=== PATIENT | female | born 1950 | race Caucasian/White ===

== ENCOUNTER → 2017-11-22 | Outpatient (CLI) | payer OTHER ==
--- NOTE | 2017-11-22 17:32 | DIAGNOSTIC IMAGING REPORT ---
LUMBAR SPINE W/O CONTRAST CLINICAL HISTORY: 67 years-old Female presenting with LUMBAR RADICULOPATHY, back pain with left-sided radiculopathy. TECHNIQUE: Multisequence, multiplanar MR imaging of the lumbar spine was performed without the use of intravenous contrast. IV contrast: None. COMPARISON: None. FINDINGS: Localizer images: Unremarkable. Vertebral bodies maintain normal height, alignment and bone marrow signal intensity apart from a benign hemangioma in L2 and minimal degenerative related superior endplate edema anteriorly at L2. Intervertebral discs demonstrate desiccation at L4-5 and desiccation with height loss at L5-S1. Additional multilevel degenerative changes further detailed below: L1-2: No significant neural foraminal or spinal canal narrowing. L2-3: No significant neural foraminal or spinal canal narrowing. L3-4: Mild facet arthropathy. No significant neural foraminal or spinal canal narrowing. L4-5: Minimal disc bulge and mild facet arthropathy result in mild right and moderate left neural foraminal narrowing. No significant spinal canal narrowing. L5-S1: Disc bulge and facet arthropathy result in mild right and moderate left neural foraminal narrowing. No significant spinal canal narrowing. The spinal cord in this in good position at the superior endplate of L1. Cauda equina normal in morphology. Paraspinal musculature within normal limits. Nonspecific subcutaneous edema in the lumbar region. Remaining visualized soft tissues demonstrate left renal cysts. IMPRESSION: 1. Mild multilevel degenerative changes with neural foraminal narrowing at L4-5 and L5-S1 greater on the left. No significant spinal canal narrowing. Electronically signed by: Newton Butt M.D. 11/22/2017 5:31 PM Dictated Date/Time: 11/22/2017 5:25 PM
== END | disposition home or self-care (01) ==
LOC: C.MRIBC 16:46
PROVIDERS: ATTEND Pain Medicine Interventional Pain Medicine
DX: M54.16 Radiculopathy, lumbar region (principal)

== ENCOUNTER 2021-02-09 05:17 | Observation (INO) ==
--- NOTE | 2021-01-26 12:08 | History & Physical Report ---
Date of Service January 26, 2021 date of surgery: 02/09/21 Procedure: Right Total Knee Arthroplasty Assessment & Plan (1) Arthritis of right knee: Risks and benefits of procedure discussed in detail today, patient would like to proceed with a Right total knee replacement at [facility] as scheduled. will obtain medical clearance from Dr Lozada prior to surgery as well as set up for cardiac clearance. Will obtain PATs at [facility]. Will place on ASA 81mg po bid x 1 month post op, f/u 2 weeks post op for routine post- operative care and x-ray, sooner if having any problems. will make arrangements for HHPT vs SNF at the time of discharge. At this point in time, has failed conservative measures and would like to proceed with surgical intervention. The risks and benefits have been discussed including, but not limited to, risk of infection, nerve injury, stiffness, loss of motion, failure to improve, etc. Reasonable outcomes and options of treatment were discussed. An explanation of appropriate alternatives to the procedure that may be advantageous were discussed and their risks and benefits, as well as the risks and benefits of not proceeding with treatment. I offered to answer any additional inquiries concerning the treatment involved. All the patient's questions were answered. The patient is agreeable, understanding of the treatment plan and alternatives, and wishes to proceed with the treatment plan History of Present Illness Chief Complaint: Right knee pain Primary Care Provider: Becky Lozada DO Hagen is a 70 year old female who complains of right knee pain, presents for pre-op evaluation prior to a right total knee replacement by Dr Ballard at [facility]. she complains of pain and stiffness in her Right knee. currently she states that the symptoms are moderate-severe and rated 7/10. The pain is described as aching, sharp and throbbing. her symptoms are aggravated by ascending stairs, daily activities, first steps while awake walking. Prior NSAIDs include Ibuprofen, and has used Tylenol and Ultram for pain. she ambulates with a walker at home. she was originally scheduled for surgery in November but was rescheduled due to a rash on her operative leg, which has resolved. Allergies Allergy/AdvReac Type Severity Reaction Status Date / Time adhesive Allergy Unknown RASH AND Verified 12/30/20 06:20 BLISTERING nickel Allergy Unknown IRRIATATION Verified 12/30/20 06:20 FROM CERTAIN EARRINGS No Known Drug Allergies Allergy Unknown NKDA Verified 12/30/20 06:20 Home Medications Medication Instructions Recorded Confirmed Type acetaminophen [Tylenol Arthritis 1,300 mg PO Q12H 11/23/20 12/30/20 History Pain] amlodipine 5 mg PO QAM 11/23/20 12/30/20 History benazepril 40 mg PO QAM 11/23/20 12/30/20 History diclofenac sodium [Voltaren] 4 g TOPICAL QID 11/23/20 12/30/20 History ergocalciferol (vitamin D2) 1,250 mcg PO WK 11/23/20 12/30/20 History [Vitamin D2] furosemide [Lasix] 20 mg PO QAM 11/23/20 12/30/20 History furosemide [Lasix] 30 mg PO QAM 11/23/20 12/30/20 History oxybutynin chloride 20 mg PO QAM 11/23/20 12/30/20 History tramadol [Ultram] 50 mg PO Q8H PRN 11/23/20 12/30/20 History Past Med/Surg History Medical History Chronic back pain CKD (chronic kidney disease) stage 3, GFR 30-59 ml/min Congestive heart failure Last seen by cardio in 2019, felt stable on regimen and OK to f/u only as needed, has followed only with PCP since. History of anesthesia reaction "slow awakening" per patient. No h/o re-intubation or unexpected admission. Hypertension Morbid obesity Orthopnea d/t mucous accumulation and CHG Osteoarthritis Sleep apnea Severe per records; has cpap, but is non-compliant Urinary incontinence Urinary tract infection hx frequent Urinary urgency Surgical History Fusion of spine L3-S1 discectomy/fusion, 2018 [facility], no complications. History of arthroscopy Left knee History of bilateral tubal ligation History of cataract surgery bilateral History of cholecystectomy History of hysterectomy History of tonsillectomy Social History Smoking Status: Never smoker Second Hand Exposure: No; Hx Alcohol Use: Yes Alcohol type: wine Hx Substance Use: No Preferred Language: Japanese Beliefs That Will Affect Care: None Current Living Situation: Family Feels Safe at Home: Yes Assistive Devices: Denture - Upper, Glasses, Walker and Wheelchair Review of Systems Review of Systems: All systems reviewed & are unremarkable except as noted in HPI & below Constitutional: no fever, no chills and no sweats Respiratory: no cough and no dyspnea Cardiovascular: no chest pain, no dyspnea and no orthopnea Gastrointestinal: no abdominal pain, no nausea and no vomiting Musculoskeletal: as per Subjective / HPI Physical Exam Physical Exam: HT: 5ft 4in WT: 261lb BMI: 46.6 BP: 170/90 Pulse: 65 Constitutional: WD/WN, vitals as above no acute distress Respiratory: normal respiratory effort, lungs clear to auscultation no respiratory distress, no labored breathing and does not use accessory muscles Cardiovascular: RRR, no murmur, no edema Gastrointestinal (Abdomen): normal bowel sounds, soft, nontender, no hepatosplenomegaly Musculoskeletal: Knee: + knee abnormal to inspection (RIGHT KNEE- ), + effusion (+1 effusion), + limited ROM of knee (ROM 0/3/110), + knee ROM with crepitation, + joint line tenderness (medial joint line) and + Jay's sign positive; no deformity, no skin erythema, no ecchymosis, no valgus laxity, no varus laxity, anterior drawer test negative, Inez's sign negative and pivot shift test negative Results & Data Results & Data ([facility]) Diagnostic Findings Diagnostic Findings Right Knee X-ray 11/06/20 showing advanced degenerative changes to the right knee, narrowing of the medial compartment and patello-femoral joint with patellar spurring noted, findings showing joint space narrowing of the medial compartment and patello-femoral joint, osteophyte formation and subchondral sclerosis noted. overall varus alignment. no acute bony pathology noted.
--- NOTE | 2021-02-04 15:52 | Anesthesiology Consultation ---
Date of Service February 04, 2021 Assessment & Plan (1) Encounter for pre-operative examination: - Cardiology clearance 12/04/2020: Surgery: Intermediate inherent risk for adverse outcome. Her mobility and functional status is limited secondary to her bilateral knee osteoarthritis as well as her morbid obesity. As her cardiac testing including electrocardiogram today look good and she is not experiencing symptoms concerning for ischemic heart disease, I do have concerns regarding her shortness of breath (recognizing this is multifactorial) and fluid status increasing her risk for decompensated heart failure. We discussed increasing her diuretic as she does not recall taking a higher dose than what she is currently taking; however she states if advised to take additional diuretic she most likely would not follow the direction as her urinary frequency is so severe. Her quality of life is really affected. It has been recommended and highly encouraged she reach out to her PCP and consider 2nd opinion. By RCRI estimated risk of adverse outcome with noncardiac surgery is low. However I do feel it is reasonable to at least obtain a more current echocardiogram before finalizing cardiac clearance." Addendum 12/28/20: "Patient is at an acceptable risk to proceed with orthopedic surgery. Recommend cautious use of IV fluids perioperatively. Consider additional diuretic therapy postoperatively." - PCP clearance 12/22/2020: "Patient is medically cleared pending cardiac clearance." [patient was cleared by cardiology on 12/28] - COVID screening: Per assessment on 02/03: Travel screen negative, no known COVID-19 positive contacts or current COVID-19 related symptoms. Patient vaccinated. Surgeon arranging preop COVID testing (scheduled 02/05; [place]). Awaiting results. Chart Review Chart Review: Acceptable Risk for Surgery and Patient NOT seen in Pre Admission Testing History Surgery Operation Date: 02/09/21 07:15 Proposed Procedures p Right Total Knee Arthroplasty - Mian Ballard DO Height/Weight Height: 5 ft 3 in Weight: 119.295 kg Allergies Allergy/AdvReac Type Severity Reaction Status Date / Time adhesive Allergy Unknown Rash, Verified 02/04/21 15:47 blistering nickel Allergy Unknown Irritation Verified 02/04/21 15:47 (earrings) No Known Drug Allergies Allergy Unknown NKDA Verified 02/03/21 15:39 Medications Home Medications Medication Instructions Recorded Confirmed Last Taken acetaminophen 650 mg 1,300 mg PO Q12H 11/23/20 02/03/21 12/29/20 21:30 tablet,extended release (Tylenol Arthritis Pain) amlodipine 5 mg tablet 5 mg PO QAM 11/23/20 02/03/21 12/29/20 11:00 benazepril 40 mg tablet 40 mg PO QAM 11/23/20 02/03/21 12/29/20 11:00 ergocalciferol (vitamin D2) 1,250 1,250 mcg PO WK 11/23/20 02/03/21 12/20/20 mcg (50,000 unit) capsule (Vitamin D2) furosemide 40 mg tablet (Lasix) 20 mg PO QAM 11/23/20 02/03/21 12/29/20 11:00 furosemide 40 mg tablet (Lasix) 30 mg PO QAM 11/23/20 02/03/21 12/28/20 oxybutynin chloride 10 mg 20 mg PO QAM 11/23/20 02/03/21 2 Days Ago tablet,extended release 24 hr ~12/28/20 tramadol 50 mg tablet (Ultram) 50 mg PO Q8H PRN 11/23/20 02/03/21 12/29/20 14:00 diclofenac sodium 1 % topical gel 4 g TOPICAL QID PRN 02/03/21 02/03/21 Unknown Past Medical History Medical History Chronic back pain CKD (chronic kidney disease) stage 3, GFR 30-59 ml/min Follows with PCP Congestive heart failure Follows with [facility] Hypertension Migraine Hx Morbid obesity Orthopnea d/t mucous accumulation and position Osteoarthritis Sleep apnea Severe per records; has cpap, but is non-compliant Urinary incontinence Urinary tract infection hx frequent Urinary urgency Past Family History Family History Brother Family history of diabetes mellitus Mother Family history of diabetes mellitus Sister Family history of diabetes mellitus Grandfather (Maternal) Family hx of colon cancer Aunt Family hx of colon cancer Past Surgical History Surgical History Fusion of spine L3-S1 discectomy/fusion, 2018 [facility], no complications. History of anesthesia reaction "slow awakening" per patient. No h/o re-intubation or unexpected admission. History of arthroscopy Left knee History of bilateral tubal ligation History of cataract surgery bilateral History of cholecystectomy History of hysterectomy History of tonsillectomy Social History Smoking Status: Never smoker Do You Dip or Chew Tobacco: No Hx Alcohol Use: Yes Alcohol type: wine alcohol intake frequency: holidays/special occasions only Hx Substance Use: No substance use type: does not use Lab Results Anesthesia Preop Results Results Anesthesia Widget: WBC 5.68 K/uL (4.8-10.8) 02/05/21 Hgb 14.0 g/dL (12.0-16.0) 02/05/21 Hct 43.9 % (37-47) 02/05/21 Plt 286 K/uL (130-400) 02/05/21 Na 140 mmol/L (136-145) 02/05/21 K 4.0 mmol/L (3.5-5.1) 02/05/21 Cl 107 mmol/L (98-107) 02/05/21 CO2 31 mmol/L (21-32) 02/05/21 BUN 15 mg/dl (7-18) 02/05/21 Creat 0.90 mg/dl (0.6-1.2) 02/05/21 Glucose Level 100 mg/dl (70-99) H 02/05/21 PT 9.5 Seconds (9.0-12.0) 02/05/21 PTT 26.3 Seconds (21.0-31.0) 02/05/21 INR 0.9 (0.9-1.1) 02/05/21 HA1c 6.5 % (4.5-5.6) H 02/05/21 Urine Color Dark Yellow 02/05/21 Urine Appearance Turbid (Clear) A 02/05/21 Urine pH 5.5 (4.5-7.5) 02/05/21 Urine Specific [place] 1.024 (1.000-1.030) 02/05/21 Urine Protein 1+ (Negative) H 02/05/21 Urine Glucose (UA) Negative (Negative) 02/05/21 Urine Ketones Trace (Negative) H 02/05/21 Urine Blood 1+ (Negative) H 02/05/21 Urine Nitrite Positive (Negative) A 02/05/21 Urine Bilirubin Negative (Negative) 02/05/21 Urine Urobilinogen Negative (Negative) 02/05/21 Urine Leukocyte Esterase 3+ (Negative) H 02/05/21 Urine WBC (Auto) >30 /hpf (0-5) H 02/05/21 Urine RBC (Auto) 0-4 /hpf (0-4) 02/05/21 Urine Hyaline Casts (Auto) 1-5 /lpf (0-5) 02/05/21 Urine Epithelial Cells (Auto) >30 /lpf (0-5) H 02/05/21 Urine Bacteria (Auto) 4+ (Negative) H 02/05/21 Testing Electrocardiogram Date: 11/30/20 Findings: + NSR @ (70bpm) Minimal voltage criteria for LVH, may be normal variant. No significant change from 12/2017. Chest X-Ray Date: 11/30/20 Date: 11/30/20 Findings: + NAD and + cardiomegaly Echocardiogram Date: 12/23/20 The examination is adequate to evaluate the referral indication. EF 55-59% No LV segmental wall motion normalities. RV systolic function is qualitatively normal. No significant valvular disease is present. There is no evidence of pulmonary hypertension. Stress Test Date: 08/25/15 Type: DSE Resting EF: 55-60% The dobutamine stress echocardiographic examination is normal without resting LV wall motion normalities or inducible ischemia. LV cavity size is normal. Moderate concentric LVH.
[2021-02-09] MEDS ORDERED: TRANEXAMIC ACID 1,000 MG **IV Intra-op IV SCH (06:00)
[2021-02-09] MEDS ORDERED: LR 500ML BOLUS, THEN 15ML/HR IV SCH (06:00)
[2021-02-09] MEDS ORDERED: ROPIVACAINE 0.5% HCL/PF 150 MG, BUPIVACAINE 0.75% MPF 20 ML, EPINEPHrine 30MG/30ML (OR ... INSTIL SCH (06:00)
[2021-02-09] MEDS ORDERED: CeleBREX 200 MG CAP PO SCH (06:00)
[2021-02-09] MEDS ORDERED: TRANEXAMIC ACID 1,000 MG **IV Pre-op IV SCH (06:00)
[2021-02-09] MEDS ORDERED: GABAPENTIN 300 MG CAP PO SCH (06:00)
[2021-02-09] MEDS ORDERED: dexAMETHasone 4 MG TAB PO SCH (06:00)
[2021-02-09] MEDS ORDERED: ACETAMINOPHEN 500 MG TAB PO SCH (06:00)
[2021-02-09] MEDS ORDERED: FAMOTIDINE 20 MG TAB PO SCH (06:00)
[2021-02-09] MEDS ORDERED: ceFAZolin 2000MG 2,000 MG/15 ML SYR IV SCH (06:00)
[2021-02-09] MEDS ORDERED: METOCLOPRAMIDE HCL 10 MG TABLET PO SCH (06:00)
[2021-02-09] MEDS ORDERED: EPINEPHrine INJ 1 MG/ML AMP ONE (06:18)
[2021-02-09] MEDS ORDERED: BUPIVACAINE 0.25% 30 ML VIAL ONE (06:19)
[2021-02-09] MEDS ORDERED: BUPIVACAINE 0.5 % 5 MG/1 ML PF 10ML VIAL ONE (06:19)
[2021-02-09] MEDS ORDERED: MIDAZOLAM HCL 1 MG/ML 2ML VIAL ONE (06:26)
[2021-02-09] MEDS ORDERED: fentaNYL citrate 100 MCG/2 ML VIAL ONE (06:27)
[2021-02-09] MEDS ORDERED: PROPOFOL IV EMULSION 10 MG/ML 20 ML VIAL IV ONE ×3 (06:34→08:23)
[2021-02-09] MEDS ORDERED: LIDOCAINE 2% 2 ML VIAL/AMP(20MG/ML) INFIL ONE (06:34)
[2021-02-09] MEDS ORDERED: ORTHO JOINT ANESTHETIC ONE (06:43)
[2021-02-09] MEDS ORDERED: ROPIVACAINE 0.5% 5 MG/ML 30 ML VIAL ONE (06:59)
--- NOTE | 2021-02-09 07:09 | History & Physical Bridge Note ---
Date of Service February 09, 2021 History & Physical Bridge Note I have examined the patient, reviewed the History & Physical and in the interval since the performance of the History & Physical I have noted the following changes of clinical significance: no changes noted
[2021-02-09] MEDS ORDERED: ePHEDrine sulfate 50 MG/ML AMP IV PRN (07:50)
[2021-02-09] MEDS ORDERED: HYDROmorphone INJ 1 MG/ML SYRINGE IV PRN (07:50)
[2021-02-09] MEDS ORDERED: ONDANSETRON INJ 2 MG/ML 2 ML VIAL IV PRN ×2 (07:50→10:45)
[2021-02-09] MEDS ORDERED: FLUMAZENIL 0.1 MG/1 ML 10 ML VIAL IV PRN (07:50)
[2021-02-09] MEDS ORDERED: ATROPINE SULFATE 0.1 MG/ML 10ML SYR IV PRN (07:50)
[2021-02-09] MEDS ORDERED: fentaNYL citrate 100 MCG/2 ML VIAL IV PRN (07:50)
[2021-02-09] MEDS ORDERED: PROMETHAZINE HCL 12.5 MG in SODIUM CHLORIDE 0.9% 50 ML IV PRN (07:50)
[2021-02-09] MEDS ORDERED: NALOXONE HCL 0.4 MG/1 ML VIAL/CARP IV PRN ×2 (07:50→10:45)
--- NOTE | 2021-02-09 08:45 | Operative Report ---
Post Operative Report Pre & Post Diagnosis Operation Date: 02/09/21 07:15 Pre-Op Diagnosis: Osteoarthritis, Right Knee Post-Op Diagnosis: Osteoarthritis, Right Knee I identified the patient and participated in the time-out.: Yes Procedure Operation Date: 02/09/21 07:15 Actual Procedures p Right Total Knee Arthroplasty(Right) utilizing [employer] journey 2 nonblock total knee arthroplasty size femur 4 tibia for polyeleven patella 29 lisseth- Mian Ballard DO Surgeon Mian aBllard DO Senior Javascript Engineer Yaakov PETIT Estimated Blood Loss 5 Findings Consistent with Post-Op Diagnosis Patient presents with severe end-stage DJD right knee 5 degree flexion contracture varus alignment subchondral sclerosis marginal osteophytes eburnated [id number] with moderate to large effusion Specimens Bone and cartilage Drains Medium bore Hemovac Anesthesia Type MAC Spinal Regional Complications none Disposition Accompanied Patient To Recovery: No Disposition: Recovery Room Indications Patient presents after failed attempted conservative management clinic physical therapy anti-inflammatories relative rest activity modification corticosteroid injection viscosupplementation above intraoperative findings were noted Description of Procedure After proper prepping and draping of the Right lower extremity anterior midline incision was made over the region of the extensor extensor mechanism after meticulous hemostasis was obtained and maintained in subcutaneous tissues a medial parapatellar incision was made The patella was subluxed lateralward the medial lateral gutter were cleaned from any hypertrophic synovitis and scar tissue of the distal femoral block was placed and the distal femoral osteotomy cut was made subsequently the chamfers anterior and posterior osteotomy cuts were made utilizing the 4-in-1 block the tibia was subsequently subluxed anteriorward medial and ateral meniscal remnants were excised in their entirety remnants of the anterior and posterior cruciate ligaments were excised in their entirety excellent exposure of the proximal tibia was obtained the tibial osteotomy guide was placed on the proximal tibial osteotomy cut was made once again the knee was irrigated with copious amounts of sterile saline solution the patella was subsequently everted lateralward thickened scar tissue around the patella was removed the patella was subsequently cut utilizing a freehand technique and was drilled prepared for final preparation and placement of patella socially flexion-extension gaps were checked and the equal and symmetric trials were placed to the appropriate femoral and tibial trials with poly-spacer being placed for equal flexion and extension gaps and full range of motion including extension to 0 and flexion to 140 the trial components after having been taken to recovery range of motion was subsequently removed meticulous hemostasis was obtained and maintained subsequently a knee block injection of joint cocktail including ropivacaine 0.5% 150 mg. Bupivacaine 0.5% epinephrine 1-200,030 mL's toradol 30 mg dexamethasone 4 mg ketamine 10 mg clonidine 100 micrograms normal saline solution 30 mg was infiltrated into the soft tissues of the posterior knee medial lateral gutters and periosteal synovium special attention was paid to protect neurovascular structures at all times subsequently trial components having been removed the knee was irrigated with sterile saline solution. debris was removed the proximal tibia was subsequently prepared and was made ready for the placement of the tibial component tibial component was also cemented and tamped into position the femoral component was subsequently placed and cemented in the position the patellar component was subsequently cemented in position because hemostasis once again obtained and maintained wound having been thoroughly irrigated with debridement and debridement lavage was p erformed as well as a medial parapatellar incision closed with #1 Vicryl in interrupted fashion subcutaneous was closed with #2 Vicryl skin was closed with skin clips. PA-C was necessary for prepping and drapping as well as wound closure of deep fascia Sub cutaneous tissue and skin and was necessary for the case. A sterile compressive dressing was placed patient was taken to recovery in stable condition of report dictated by Elio I attest to the content of the Intraoperative Record and any orders documented therein. Any exceptions are noted below. I attest to the content of the Intraoperative Record and any orders documented therein. Any exceptions are noted below.
--- NOTE | 2021-02-09 10:18 | Anesthesiology Progress Note ---
Date of Service February 09, 2021 Anesthesia Post Procedure Vital Signs Vital Signs: Temp Pulse Pulse Resp BP Pulse Ox 02/09/21 10:10 69 17 121/70 93 02/09/21 10:00 37.3 C 79 18 126/69 94 02/09/21 09:50 82 18 142/70 H 95 02/09/21 09:40 79 18 133/74 100 02/09/21 09:30 82 20 131/79 100 02/09/21 09:24 36 C L 88 18 148/72 H 100 02/09/21 05:50 36.7 C 73 18 179/97 H 96 Pain Intensity Right Knee: Pain Intensity: 8 Back: Pain Intensity: 4 Transfer of Care Handoff Completed per policy Notes Mental Status: alert / awake / arousable Patient Amnestic to Procedure: Yes Nausea / Vomiting: adequately controlled Pain: adequately controlled Airway Patency, RR, SpO2: stable & adequate BP & HR: stable & adequate Hydration State: stable & adequate Neuraxial Anesthesia: was administered and sensory block is resolving Anesthetic Complications: no major complications apparent
[2021-02-09] MEDS ORDERED: HYDROmorphone INJ 0.5 MG/0.5 ML SYR IV PRN (10:45)
[2021-02-09] MEDS ORDERED: oxyCODONE HCL IR 5 MG TAB (IMMEDIATE RELEASE) PO PRN (10:45)
[2021-02-09] MEDS ORDERED: MAGNESIUM HYDROXIDE SUSP 30 ML UDC PO PRN (10:45)
[2021-02-09] MEDS ORDERED: bisacodyL 10 MG SUPP PR PRN (10:45)
--- NOTE | 2021-02-09 11:03 | XRay Report ---
XR knee RT 1 or 2V routine CLINICAL HISTORY: Postoperative evaluation. COMPARISON: None FINDINGS: Alignment of the total right knee arthroplasty is anatomic. There is no periprosthetic fra cture or unexpected radiopaque foreign body. There are surgical drains. IMPRESSION: Expected findings following total right knee arthroplasty. ACT 112: Negative or not required by law. Electronically signed by: Jose Guerrero M.D. 02/09/2021 11:01 AM
[2021-02-09] MEDS: SODIUM CHLORIDE 0.9% 1000ML 1,000 ML IV SCH ×2 (11:24→21:06)
[2021-02-09] MEDS: ceFAZolin 2000MG 2,000 MG/15 ML SYR IV SCH ×2 (14:21→21:07)
[2021-02-09] MEDS: ASPIRIN 81 MG ECTAB PO SCH (19:14)
[2021-02-09] MEDS: DOCUSATE SODIUM 100 MG CAP PO SCH (19:15)
[2021-02-09] MEDS ORDERED: SENNA 8.6 MG TAB PO SCH (21:00)
[2021-02-09] MEDS: ACETAMINOPHEN 500 MG TAB PO SCH (21:07)
[2021-02-10] MEDS: ACETAMINOPHEN 500 MG TAB PO SCH ×2 (04:54→13:37)
[2021-02-10] MEDS: DOCUSATE SODIUM 100 MG CAP PO SCH (08:21)
[2021-02-10] MEDS: ASPIRIN 81 MG ECTAB PO SCH (08:22)
[2021-02-10 08:30] LABS: Hematocrit (blood only) 38.1 % (37-47); Hemoglobin 12.6 g/dL (12.0-16.0); Mean Corpuscular Hemoglobin 29.4 pg (25-34); Mean Corpuscular Hgb Conc 33.1 g/dL (32-36); Mean Platelet Volume 9.5 fL (7.4-10.4); Platelet Count 293 K/uL (130-400); RDW Coefficient of Variation 13.2 % (11.5-14.5); Red Blood Count 4.28 M/uL (4.2-5.4); White Blood Count 12.69 K/uL (4.8-10.8)
[2021-02-10] MEDS ORDERED: MULTIVITAMIN TAB PO SCH (09:00)
[2021-02-10] MEDS ORDERED: amLODIPine BESYLATE 5 MG TAB PO SCH (09:00)
[2021-02-10] MEDS ORDERED: OXYBUTYNIN CHLORIDE XL 5 MG TABCR PO SCH (09:00)
[2021-02-10] MEDS ORDERED: ENALAPRIL MALEATE 10 MG TAB PO SCH (09:00)
[2021-02-10] MEDS ORDERED: FUROSEMIDE 20 MG TAB PO SCH ×2 (09:00)
--- NOTE | 2021-02-10 09:21 | Orthopedic Progress Note ---
Date of Service February 10, 2021 Assessment & Plan (1) Arthritis of right knee: Plan: Postop day 1 status post right total knee arthroplasty. PT/OT protocols. Weightbearing as tolerated. DVT prophylaxis-aspirin p.o. twice daily, SCDs, ARLINE zavala. Pain management as written. Blood chemistries pending DC plans-patient is planning for outpatient PT upon discharge. Admission and Anticipated Discharge Date Admission Date: February 09, 2021 Subjective Postop day 1 Patient sitting in chair at the bedside. Having some mild pain in the right knee this morning. No other complaints. She states that she did have some mild lightheadedness when she first got up this morning but resolved quickly and has not had since. Denies shortness of breath, chest pain, lightheadedness. Physical Exam Physical Exam: Dressings are clean, dry, and intact. Calves are soft nontender. Neurovascular intact. Toes are mobile. She has good dorsiflexion and plantarflexion of the right foot. Hemovac drainage was around 110 cc from the previous shift. Results & Data ([facility]) Vital Signs (Past 12 Hours) Vital Signs Temp Pulse Resp BP Pulse Ox 02/10/21 09:10 36.5 C 68 18 151/81 H 100 02/10/21 02:35 36.6 C 68 16 134/77 95 02/09/21 22:54 36.5 C 67 16 121/68 95 Laboratory Results Laboratory Results WBC 12.69 K/uL (4.8-10.8) H 02/10/21 07:59 RBC 4.28 M/uL (4.2-5.4) 02/10/21 07:59 Hgb 12.6 g/dL (12.0-16.0) 02/10/21 07:59 Hct 38.1 % (37-47) 02/10/21 07:59 MCV 89.0 fL (80-100) 02/10/21 07:59 MCH 29.4 pg (25-34) 02/10/21 07:59 MCHC 33.1 g/dL (32-36) 02/10/21 07:59 RDW Std Deviation 43.0 fL (36.4-46.3) 02/10/21 07:59 RDW Coeff of Shan 13.2 % (11.5-14.5) 02/10/21 07:59 Plt Count 293 K/uL (130-400) 02/10/21 07:59 MPV 9.5 fL (7.4-10.4) 02/10/21 07:59 COVID-19 Eval Order Covid19 [facility]Now [facility] 02/09/21 05:38 SARS-CoV-2, RNA, NAAT NEGATIVE (NEGATIVE) 02/09/21 05:38 Blood Type O Positive 02/09/21 05:44 Antibody Screen NEGATIVE 02/09/21 05:44 Impressions Knee X-Ray 02/09/21 09:38 XR knee RT 1 or 2V routine CLINICAL HISTORY: Postoperative evaluation. COMPARISON: None FINDINGS: Alignment of the total right knee arthroplasty is anatomic. There is no periprosthetic fracture or unexpected radiopaque foreign body. There are surgical drains. IMPRESSION: Expected findings following total right knee arthroplasty. ACT 112: Negative or not required by law. Electronically signed by: Jose Guerrero M.D. 02/09/2021 11:01 AM
[2021-02-10 10:02] LABS: BUN Creatinine Ratio 19.7 (10-20); Creatinine Clr Calc Pharmacy 64.3 ml/min; Est GFR (African American) 65.6 ml/min; Est GFR (Non-African American) 56.6 ml/min; Potassium 4.2 mmol/L (3.5-5.1)
--- NOTE | 2021-02-12 12:20 | Discharge Summary ---
Date of Service February 12, 2021 Admission HPI Per Admitting Provider Xiao is a 70 year old female who complains of right knee pain, presents for pre-op evaluation prior to a right total knee replacement by Dr Ballard at [facility]. she complains of pain and stiffness in her Right knee. currently she states that the symptoms are moderate-severe and rated 7/10. The pain is described as aching, sharp and throbbing. her symptoms are aggravated by ascending stairs, daily activities, first steps while awake walking. Prior NSAIDs include Ibuprofen, and has used Tylenol and Ultram for pain. she ambulates with a walker at home. she was originally scheduled for surgery in November but was rescheduled due to a rash on her operative leg, which has resolved. Admission Exam Per Admitting Provider Physical Exam: HT: 5ft 4in WT: 261lb BMI: 46.6 BP: 170/90 Pulse: 65 Constitutional: WD/WN, vitals as above no acute distress Respiratory: normal respiratory effort, lungs clear to auscultation no respiratory distress, no labored breathing and does not use accessory muscles Cardiovascular: RRR, no murmur, no edema Gastrointestinal (Abdomen): normal bowel sounds, soft, nontender, no hepatosplenomegaly Musculoskeletal: Knee: + knee abnormal to inspection (RIGHT KNEE- ), + effusion (+1 effusion), + limited ROM of knee (ROM 0/3/110), + knee ROM with crepitation, + joint line tenderness (medial joint line) and + Jay's sign positive; no deformity, no skin erythema, no ecchymosis, no valgus laxity, no varus laxity, anterior drawer test negative, Inez's sign negative and pivot shift test negative Principal Diagnosis Right knee osteoarthritis Discharge Data Allergies Allergy/AdvReac Type Severity Reaction Status Date / Time adhesive Allergy Unknown Rash, Verified 02/09/21 05:29 blistering nickel Allergy Unknown Irritation Verified 02/09/21 05:29 (earrings) No Known Drug Allergies Allergy Unknown NKDA Verified 02/09/21 05:29 Procedures Performed Operation Date: 02/09/21 07:15 Actual Procedures p Right Total Knee Arthroplasty(Right) - Mian Ballard DO Ordered Studies 02/09/21 05:00 US - OR guided needle placemen Routine Hospital Course (1) Arthritis of right knee: Date of Service February 10, 2021 Assessment & Plan (1) Arthritis of right knee: Plan: Postop day 1 status post right total knee arthroplasty. PT/OT protocols. Weightbearing as tolerated. DVT prophylaxis-aspirin p.o. twice daily, Lul, ARLINE zavala. Pain management as written. Blood chemistries pending DC plans-patient is planning for outpatient PT upon discharge. Admission and Anticipated Discharge Date Admission Date: February 09, 2021 Subjective Postop day 1 Patient sitting in chair at the bedside. Having some mild pain in the right knee this morning. No other complaints. She states that she did have some mild lightheadedness when she first got up this morning but resolved quickly and has not had since. Denies shortness of breath, chest pain, lightheadedness. Physical Exam Physical Exam: Dressings are clean, dry, and intact. Calves are soft nontender. Neurovascular intact. Toes are mobile. She has good dorsiflexion and plantarflexion of the right foot. Hemovac drainage was around 110 cc from the previous shift. Results & Data ([facility]) Vital Signs (Past 12 Hours) Vital Signs Temp Pulse Resp BP Pulse Ox 02/10/21 09:10 36.5 C 68 18 151/81 H 100 02/10/21 02:35 36.6 C 68 16 134/77 95 02/09/21 22:54 36.5 C 67 16 121/68 95 Laboratory Results Laboratory Results WBC 12.69 K/uL (4.8-10.8) H 02/10/21 07:59 RBC 4.28 M/uL (4.2-5.4) 02/10/21 07:59 Hgb 12.6 g/dL (12.0-16.0) 02/10/21 07:59 Hct 38.1 % (37-47) 02/10/21 07:59 Total Time Total Time Spent Total Time Spent (In Minutes): 5 Discharge Plan Discharge Items Patient Disposition: Home - Self-Care Reason For Visit: Osteoarthritis, Right Knee Discharge Diagnosis: Right Knee Osteoarthritis Activity: Per Instructions section Weightbearing: Right weightbearing Weightbearing Comment: as tolerated with walker Non-emergency contact: Surgeon Call non-emergency contact if: you have any medication questions, your pain is not controlled, your temperature is above 101.5, your wound has increased redness and your wound has increased drainage Follow-up/Referrals: Becky Lozada DO [Primary Care Provider] - Diet: Regular Addtl Attending Provider Instructions: ACTIVITY RECOMMENDATIONS: SELF CARE INSTRUCTIONS AFTER TOTAL KNEE REPLACEMENT A. You may need to continue a physical therapy program after discharge from the hospital. There are several options available to you. Your doctor will assist you in selecting the best one for you. 1. An out-patient facility 2 to 3 times a week for therapy or home therapy. 2. Continue working on all exercises taught to you in the hospital. Your goals should be to increase bending of your knee to 90 degrees and beyond and to fully straighten your knee. B. You may progress at your own pace from walking with a walker or crutches to a cane; then to no assistive devices. C. Make walking a part of your daily routine. Be up as much as comfortable with rest periods throughout the day. Rest with leg elevation is very important. Use the ice wrap frequently for the first 3-4 weeks. D. There are no restrictions on activities. You may ride in a car, shop, participate in heel trimmer and all social activities. E. Wear the long elastic stockings (ARLINE hose) 20 hours a day for 2 weeks after surgery. They can be removed several times a day for laundering and for a bath. F. You may shower, no tub baths until cleared by your doctor. SPECIAL CARE INSTRUCTIONS: VERY IMPORTANT TO READ AND REVIEW A. There are a few signs you need to watch for after you are home. Call [facility] if you notice any of the followin. Increased severe knee pain. Some pain is expected especially when you exercise. 2. Increased swelling in your leg or knee; pain or swelling of the calf muscle in either lower leg. 3. Any fluid drainage from the incision. 4. Shortness of breath or chest pain. B. Please call [facility] at if you have any concerns or questions about your operation or recovery. The doctor or his nurse will return your call promptly. C. You must take antibiotics before dental work, bladder, bowel or other surgery. Your doctor will provide you with a permanent care to carry describing this precaution. IMPORTANT: * REMEMBER TO TAKE ASPIRIN, 81 MG, TWICE DAILY FOR 4 WEEKS UNLESS OTHERWISE DIRECTED. THIS IS YOUR BLOOD THINNER. * HIGH RISK PATIENTS MAY BE PRESCRIBED A STRONGER BLOOD THINNER. THIS WILL BE PROVIDED AT DISCHARGE. * CALL IF INCREASED PAIN, REDNESS, DRAINAGE OR FEVER GREATER THAT 101. * WEAR ARLINE HOSE 20 HOURS PER DAY FOR 2 WEEKS. * DERMABOND Prineo- This is a mesh tape dressing that is covered with glue. It should remain in place until the incision is properly healed, usually 10-14 days. This dressing is designed to naturally slough off. You may trim the excess mesh tape as it peels off. Incision may be briefly wet in a shower. Dry immediately by blotting with a clean, dry towel. Do not bath or swim until instructed by your doctor. Do not scratch, rub, or pick at the dressing. Do not apply any topical ointments or lotions until dressing is completely removed and/or instructed by your doctor. There may be a small piece of suture material at one end of your incision. Do not pull or trim this. If it is bothersome or catching on clothing, you may cover it with a band-aid. . FOLLOW UP VISIT: If appointment is not already scheduled: Please call [facility] to make a follow-up appointment for 2 weeks after your surgery at . Stand-Alone Forms: My [facility] [employer], Smoking Cessation Medications and DC Order Prescriptions: New acetaminophen [Tylenol Extra Strength] 500 mg Tablet 1,000 mg PO Q8 14 Days Qty: 84 RF: 0 aspirin 81 mg Tablet,Delayed Release (Dr/Ec) 81 mg PO BID 30 Days Qty: 60 RF: 0 cefadroxil 500 mg capsule 500 mg PO BID Qty: 28 RF: 1 polyethylene glycol 3350 [Miralax] 17 gram powder in packet 17 g PO DAILY PRN (Reason: constipation) Qty: 5 RF: 0 oxycodone 5 mg Tablet 5 mg PO Q4H MDD 6 PRN (Reason: pain) Qty: 30 RF: 0 Continued furosemide [Lasix] 40 mg Tablet 20 mg PO QAM RF: 0 furosemide [Lasix] 40 mg Tablet 30 mg PO QAM RF: 0 oxybutynin chloride 10 mg Tablet Extended Release 24hr 20 mg PO QAM RF: 0 amlodipine 5 mg Tablet 5 mg PO QAM RF: 0 ergocalciferol (vitamin D2) [Vitamin D2] 1,250 mcg (50,000 unit) Capsule 1,250 mcg PO WK RF: 0 benazepril 40 mg Tablet 40 mg PO QAM RF: 0 diclofenac sodium 1 % Gel 4 g TOPICAL QID PRN (Reason: Pain) RF: 0 Discontinued tramadol [Ultram] 50 mg Tablet 50 mg PO Q8H PRN (Reason: Pain) RF: 0 acetaminophen [Tylenol Arthritis Pain] 650 mg Tablet Extended Release 1,300 mg PO Q12H RF: 0 Discharge Orders: Discharge Order (Routine); Ordered 02/10/21 Ordered By: Yaakov Medley/Other Patient Handouts: DVT Post Op Prevention Admission Data Admit Date/Time: 02/09/21 09:38 Attending Provider: Mian Ballard Admit Provider: Mian Ballard Primary Care Provider: Becky Lozada Other Interventions: Discharge Summary Assessment (RN) Last Done: 02/10/21 11:37
== END 2021-02-10 15:56 | disposition home or self-care (01) ==
LOC: ASU 05:17 → 3E 05:17

== ENCOUNTER 2021-02-19 15:01 | Inpatient (IN) ==
--- NOTE | 2021-02-19 16:29 | Emergency Department Note ---
Impression & Plan Ambulatory dysfunction, Foot fracture, Blood glucose elevated ED Provider Note NAME: SONAM BRAR AGE: 70 SEX: F : 1950 ARRIVES VIA: Ambulance INFORMANT: Patient ED PROVIDER(S): Jorge Tineo DO CHIEF COMPLAINT: Trouble ambulating at home HPI: Patient is a 70-year-old female who presents to the ER as she is postop from a total right knee performed by Dr. Ballard at the end of January. Since being home she is been having trouble getting around. cannot longer take care of her. She has had several falls recently at the end of January. Since then they have had to call EMS to help her get up but she has not fallen. She has not fallen since the . Denies any her head or neck. No chest pain or belly pain. She notes the swelling in the leg. She has no other pain. No dysuria, urgency, or frequency. ROS: See above HPI for pertinent positives & negatives. A total of 10 systems reviewed and were otherwise negative. PAST MEDICAL HISTORY:See Below PAST SURGICAL HISTORY:See Below FAMILY HISTORY:See Below SOCIAL HISTORY:See Below HOME MEDICATIONS:See Below ALLERGIES:See Below VITALS:See Below PHYSICAL EXAMINATION: GENERAL: Sitting up in bed, alert, well appearing, well nourished, no distress, non-toxic EYE EXAM: normal conjunctiva. OROPHARYNX: no exudate, no erythema, lips, buccal mucosa, and tongue normal and mucous membranes are moist NECK: supple, no nuchal rigidity, no adenopathy, non-tender LUNGS: Clear to auscultation. Normal chest wall mechanics HEART: no murmurs, S1 normal and S2 normal ABDOMEN: abdomen soft, non-tender, normo-active bowel sounds, no masses, no rebound or guarding. BACK: Back is symmetrical on inspection and there is no deformity, no midline tenderness, no CVA tenderness. SKIN: no rashes and no bruising UPPER EXTREMITIES: upper extremities are grossly normal. LOWER EXTREMITIES: Right leg larger than left. Midline incision over the knee is clean, dry and intact. Erythema around the right ankle. DPs are 2 out of 4. Gross station intact. Swelling and bruising around the right ankle and foot including digits 4 and 5 NEURO EXAM: Normal sensorium, cranial nerves II-XII grossly intact, normal speech, no gross weakness of arms, no gross weakness of legs. MEDICAL DECISION MAKING: Patient is a 70-year-old female who presents the ER as she can no longer function at home. Recent right knee replacement at the end of January. She has been having trouble getting around and has called EMS multiple times to help her get up from a seated position. cannot take care of her. They attempted to place her at home but have been unsuccessful. IV was established blood was obtained. Labs show no significant leukocytosis or anemia. BMP on LFTs bilirubin and lipase is unremarkable. Covid was negative. No DVT. Questionable navicular fracture on the x-rays of the foot. Patient was updated bedside. Discussed with hospitalist admitted for further work-up. Triage Nursing notes reviewed. Limited review of prior medical records performed Vital Signs: reviewed and remarkable for HTN Differential diagnosis: Differential diagnoses include major intracranial, cervical, spinal, thoracic, abdominal, pelvic and neurologic injury. Fracture, contusion, sprain, strain, laceration, abrasions included as well. ER treatment provided: See below Diagnostics interpreted by me: ECG: none Cardiac Monitoring: An order was placed for continuous cardiac monitoring. The monitor shows a rate of 80 with sinus rhythm. Laboratory studies: As stated above and show below. Imaging studies: Duplex of the right lower extremity was negative for DVT X-rays of the foot and ankle show a questionable navicular fracture Consultation(s): Discussed with hospitalist for further evaluation admission Procedures: none Critical Care: None Past Med/Surg History Medical History (Updated 02/19/21 @ 21:26 by Jorge Tineo DO) Chronic back pain CKD (chronic kidney disease) stage 3, GFR 30-59 ml/min Follows with PCP Congestive heart failure Follows with [facility] Hypertension Loose right total knee arthroplasty Migraine Hx Morbid obesity Orthopnea d/t mucous accumulation and position Osteoarthritis Sleep apnea Severe per records; has cpap, but is non-compliant Urinary incontinence Urinary tract infection hx frequent Urinary urgency Surgical History Fusion of spine L3-S1 discectomy/fusion, 2018 [facility], no complications. History of anesthesia reaction "slow awakening" per patient. No h/o re-intubation or unexpected admission. History of arthroscopy Left knee History of bilateral tubal ligation History of cataract surgery bilateral History of cholecystectomy History of hysterectomy History of tonsillectomy Family History Brother Family history of diabetes mellitus Mother Family history of diabetes mellitus Sister Family history of diabetes mellitus Grandfather (Maternal) Family hx of colon cancer Aunt Family hx of colon cancer Social History (Updated 02/03/21 @ 16:05 by Priti Lin RN) Smoking Status: Never smoker Second Hand Exposure: Yes (FATHER SMOKED, SON SMOKES); Hx Alcohol Use: Yes Alcohol type: wine Hx Substance Use: No Preferred Language: Yakut Communication Ability: Effective Supply Chain Tech Required: No Beliefs That Will Affect Care: None marital status: Current Living Situation: Spouse and Family current occupational status: retired Feels Safe at Home: Yes Assistive Devices: Denture - Upper, Glasses and Walker Allergies Allergies Allergy/AdvReac Type Severity Reaction Status Date / Time adhesive Allergy Intermediate Rash, Verified 02/19/21 17:00 blistering nickel Allergy Mild Irritation Verified 02/19/21 17:00 (earrings) Home Meds Home Medications Medication Instructions Recorded Confirmed amlodipine 5 mg tablet 5 mg PO QAM 11/23/20 02/19/21 benazepril 40 mg tablet 40 mg PO QAM 11/23/20 02/19/21 ergocalciferol (vitamin D2) 1,250 1,250 mcg PO WK 11/23/20 02/19/21 mcg (50,000 unit) capsule (Vitamin D2) furosemide 40 mg tablet (Lasix) 35 mg PO QAM 11/23/20 02/19/21 oxybutynin chloride 10 mg 20 mg PO QAM 11/23/20 02/19/21 tablet,extended release 24 hr diclofenac sodium 1 % topical gel 4 g TOPICAL QID PRN 02/03/21 02/19/21 acetaminophen 500 mg tablet 1,000 mg PO Q8 PRN 02/19/21 02/19/21 (Tylenol Extra Strength) Previous Rx's Medication Instructions Recorded aspirin 81 mg tablet,delayed 81 mg PO BID 30 Days #60 tab 02/10/21 release cefadroxil 500 mg capsule 500 mg PO BID #28 cap 02/10/21 oxycodone 5 mg tablet 5 mg PO Q4H PRN #30 tab MDD 6 02/10/21 polyethylene glycol 3350 17 gram 17 g PO DAILY PRN #5 ea 02/10/21 oral powder packet (Miralax) Results & Data (ED) Vital Signs Vital Signs - 24 hr 02/19/21 15:10 Temperature 36.3 C L Temperature Source Temporal Artery Scan Pulse Rate 97 H Pulse Rhythm Regular Pulse Strength Normal Respiratory Rate 18 Respiratory Effort / Characteristics Non-Labored Spontaneous Respiratory Depth Normal Respiratory Pattern Regular Blood Pressure 156/98 H Blood Pressure Mean 117 Blood Pressure Position Sitting Pulse Oximetry 96 Oxygen Delivery Method Room Air Sepsis Recent Fever Within 48 Hours No Sepsis New/Unexplained Change in Mental Status N/A Sepsis Action Taken by Nursing No Action Required Laboratory Data Result diagrams: 02/19/21 17:00 02/19/21 17:00 Lab Results 02/19/21 02/19/21 Range/Units 16:35 16:35 COVID-19 Eval Order Covid19 at [facility] SARS-CoV-2 (PCR) NEGATIVE (Negative) Administered Medications Ceftriaxone Sodium 1,000 mg/ (Dextrose) 50 mls @ 100 mls/hr IV Q12H KOBY; Protocol Stop: 02/26/21 18:02 Last Admin: 02/19/21 20:28 Dose: 100 mls/hr Documented by: [id number] Imaging Data Radiologist's Impression: Venous Doppler Study 02/19/21 16:29 ULTRASOUND RIGHT LOWER EXTREMITY VENOUS CLINICAL HISTORY: Right leg swelling. Pain and erythema. COMPARISON STUDY: No priors. TECHNIQUE: Real-time, grayscale, and color Doppler sonography of the deep veins of the right lower extremity was performed from the inguinal crease to the calf. Compression and augmentation were utilized. FINDINGS: There is no sonographic evidence of deep venous thrombosis identified in the right lower extremity. The common femoral, superficial femoral, and popliteal veins are patent and normally compressible. The greater saphenous vein and the profunda femoris vein at the junction with the common femoral vein are clear. The visualized calf veins are patent. IMPRESSION: There is no sonographic evidence of deep venous thrombosis identified in the right lower extremity. ACT 112: Negative or not required by law. Electronically signed by: Nj Busch M.D. 02/19/2021 6:17 PM Ankle X-Ray 02/19/21 16:35 XR ankle RT min 3V routine CLINICAL HISTORY: r ankle pain COMPARISON: None. DISCUSSION: Deformity and cortical irregularity of the right navicular bone is seen which could represent acute fracture. No evidence of fracture dislocated within ankle joint. Ankle mortise is preserved. Diffuse soft tissue edema is seen. Plantar are and posterior calcaneal spurs are seen. IMPRESSION: 1. Possible fracture of the right navicular bone. Prominent soft tissue edema. Report will be called to emergency Department. 2. Ankle mortise is preserved. ACT 112: Negative or not required by law. The above report was generated using voice recognition software. It may contain grammatical, syntax or spelling errors. Electronically signed by: Dasha Rosado DO 02/19/2021 4:55 PM Foot X-Ray 02/19/21 16:35 XR foot RT min 3V routine CLINICAL HISTORY: r foot pain COMPARISON: None. DISCUSSION: No definite acute fracture dislocation. No blastic or lytic lesions are seen. Patient is limited due to diffuse osteopenia. Plantar calcaneal spur is seen. Diffuse soft tissue edema is seen. IMPRESSION: No acute fracture dislocation. Osteopenia. ACT 112: Negative or not required by law. The above report was generated using voice recognition software. It may contain grammatical, syntax or spelling errors. Electronically signed by: Dasha Rosado DO 02/19/2021 4:49 PM Discharge Plan Visit Data Chief Complaint: Knee Injury/Pain Stated Complaint: R Knee Pain ED Provider: Jorge Tineo Discharge Problem: Ambulatory dysfunction, Foot fracture, Blood glucose elevated Patient Disposition: Admitted As Inpatient Discharge Instructions Interventions: ED Discharge Assessment Last Done: 02/19/21 19:20
--- NOTE | 2021-02-19 16:51 | History & Physical Report ---
Date of Service February 19, 2021 Assessment & Plan (1) Status post total right knee replacement: Plan: - concern for right navicular fracture on imaging - see below - Allow diet - Pain control ordered - constipation likely due to narcotics, will order bowel regimen - PT/OT consulted-needs for likely rehab placement on DC - Surrounding erythema likely postsurgical (2) Navicular fracture of ankle: Plan: - Consult Ortho, discussed with Dr. Pelaez via phone, no current needs for surgery --likely acute based upon the ecchymosis and edema of the foot currently - possible needs for walking boot based on the patient pain level. Currently pain is well controlled. -Fall precautions (3) Cellulitis: Plan: -Has been on cefadroxil 500 mg BID since surgery on 02/09, will hold this for now, concerned that erythema has extended past the previous marker line drawn on 02/15 - new outline drawn by myself and dated today -IV ceftriaxone ordered -Follow blood cultures, checking lactic -No leukocytosis on CBC, afebrile -Will check orthostatics to r/o not becoming septic -Check ultrasound RLE to rule out DVT, patient has been taking ASA 81 mg twice daily so unlikely but higher risk due to injury on recent surgery (4) Congestive heart failure: Plan: -Last echocardiogram done on 12/23/2020, showing EF of 55 to 59%, no WMA, no valvular disease, no evidence of pulmonary hypertension. - Taking lasix 35 mg daily due to issues with incontinence - denies dysuria,but will check UA and follow urine culture to r/o. Unlikely uti with being on antibiotic since having surgery. At minimum she takes 20 mg of Lasix per day. Patient has been cutting her pills in half, as well as into quarters and dosing herself according to what her daily activities are. (5) Hypertension: Plan: -Continue amlodipine 5 mg daily, Lasix as above -BP 156/98, monitor (6) Morbid obesity: Plan: -BMI not documented as the patient has not been weighed yet, diet and exercise to be encouraged, heart healthy diet (7) Sleep apnea: Plan: -Supposed to use CPAP however is noncompliant (8) Migraine: Plan: -History of such, stable, no headache currently (9) Constipation: Plan: - Miralax, dulcolax po scheduled. Give 1x dose of milk of mag. - No BM since 02/09 (10) Chronic back pain: Plan: -History of such DVT PPx - teds, scds on nonoperative leg, ASA 81 mg twice daily CODE: Full code Dispo: From home, likely to remain in the hospital x 1-2 days, CM to assist with discharge planning Plan: I have seen and examined the patient and have discussed the case with the provider above. I agree with the assessment and plan as stated with the following exceptions. 70 yo F s/p R total knee replacement by Dr. Ballard on 02/09 presents with difficulty ambulating and caring for herself at home. She has been using oxycodone every 6 hours "like I'm supposed to" and reports some persistent pain in the knee. She also reports pain in the right ankle and has an acute navicular fracture. She is mentating clearly and otherwise has no issues. On exam she uis hypertensive, otherwise vitals are stable. Her right knee wound is closed with steri-strips in place and minimal edema surrounding incision site. She has erythematous streaking along the anterior right lower leg with acute swelling and warmth of the right ankle. There is dependent ecchymosis distal to the medial malleolus on the right and there is significant ROM restriction to the right ankle. There is no clear open wound in the lower right leg. Physical exam is otherwise unremarkable. Agree with plan above including empiric antibiotics and ortho assessment. No knee xray was performed today-defer further imaging to ortho. Ankle imaging present. No boot in place as of yet. Patient is NWB on the right and will need PT/OT evaluations after o rtho recs with likely transition to rehab. Lovenox for DVT prophy at this point. DO Jb History of Present Illness Chief Complaint: difficulty getting around Primary Care Provider: Becky Lozada DO This is a 70 yo F with PMHx of HTN, CHF, CKD, chronic back pain, morbid obesity, orthopnea, JAGDEEP on cpap, who presented to the ER for complaints of weakness, fall, request for placement. Mrs. Miguel is s/p right knee replacement surgery on 02/09/[address] Ballard. She was discharged home on 02/12/21. She was placed on cefadroxil 500 mg BID for 14 days after surgery for concern for rash/cellulitis in distal operative leg. Pt has been taking the antibiotic as directed, as well as baby aspirin twice daily. Last 02/14/2021 patient was sitting on bedside commode and attempted to get up however felt weak, became unsteady, and her who was helping her witnessed her fall. He grabbed onto her arms and pulled her backwards on top of himself, so that she did not fall forward and onto the knee she just had surgery on. Since then she has had a dull aching pain in her right foot and there is significant bruising to the area. The redness around her right foot is still present. On Monday, home PT/OT came to visit her at her home and outlined the red area, currently the redness extends past the line that was previously drawn. She denies any fevers, chills or sweats. Her knee feels good, swelling has continued to improve, there is minimal redness surrounding the knee however no purulent discharge and no worsening ability to move the knee. She has been taking oxycodone as needed for pain, Tylenol but feels that her pain has not been well controlled, specifically in the right lower leg. She reports that her bowels have not moved since 02/08 and does not have MiraLAX at home. She did take a stool softener the last 2 days but has not prompted bowel movement. Other issues include incontinence which causes significant disturbance in her sleep, and is on Lasix for CHF. Instead of taking 40 mg daily like prescribed she cuts her pills, and takes either 20 mg or 30-35 mg based on what she is doing during the day. Recently, she has been taking 35 mg daily. She presented today with her as she has felt weaker and has had significant pain in the foot. Her who also suffers from Charcot Mara tooth syndrome, feels that he is unable to care for his with her chronic comorbidities, falls, and increased weakness, ultimately seeking inpatient rehab. Allergies Allergy/AdvReac Type Severity Reaction Status Date / Time adhesive Allergy Intermediate Rash, Verified 02/19/21 17:00 blistering nickel Allergy Mild Irritation Verified 02/19/21 17:00 (earrings) Home Medications Medication Instructions Recorded Confirmed Type amlodipine 5 mg tablet 5 mg PO QAM 11/23/20 02/19/21 History benazepril 40 mg tablet 40 mg PO QAM 11/23/20 02/19/21 History ergocalciferol (vitamin D2) 1,250 1,250 mcg PO WK 11/23/20 02/19/21 History mcg (50,000 unit) capsule (Vitamin D2) furosemide 40 mg tablet (Lasix) 35 mg PO QAM 11/23/20 02/19/21 History oxybutynin chloride 10 mg 20 mg PO QAM 11/23/20 02/19/21 History tablet,extended release 24 hr diclofenac sodium 1 % topical gel 4 g TOPICAL QID PRN 02/03/21 02/19/21 History aspirin 81 mg tablet,delayed 81 mg PO BID 30 Days #60 tab 02/10/21 02/19/21 Rx release cefadroxil 500 mg capsule 500 mg PO BID #28 cap 02/10/21 02/19/21 Rx oxycodone 5 mg tablet 5 mg PO Q4H PRN #30 tab MDD 6 02/10/21 02/19/21 Rx polyethylene glycol 3350 17 gram 17 g PO DAILY PRN #5 ea 02/10/21 02/19/21 Rx oral powder packet (Miralax) acetaminophen 500 mg tablet 1,000 mg PO Q8 PRN 02/19/21 02/19/21 History (Tylenol Extra Strength) Past Med/Surg History Medical History (Updated 02/19/21 @ 21:10 by Светлана Muhammad DO) Chronic back pain CKD (chronic kidney disease) stage 3, GFR 30-59 ml/min Follows with PCP Congestive heart failure Follows with [facility] Hypertension Loose right total knee arthroplasty Migraine Hx Morbid obesity Orthopnea d/t mucous accumulation and position Osteoarthritis Sleep apnea Severe per records; has cpap, but is non-compliant Urinary incontinence Urinary tract infection hx frequent Urinary urgency Surgical History Fusion of spine L3-S1 discectomy/fusion, 2018 [facility], no complications. History of anesthesia reaction "slow awakening" per patient. No h/o re-intubation or unexpected admission. History of arthroscopy Left knee History of bilateral tubal ligation History of cataract surgery bilateral History of cholecystectomy History of hysterectomy History of tonsillectomy Family History Brother Family history of diabetes mellitus Mother Family history of diabetes mellitus Sister Family history of diabetes mellitus Grandfather (Maternal) Family hx of colon cancer Aunt Family hx of colon cancer Social History (Updated 02/03/21 @ 16:05 by Priti Lin RN) Smoking Status: Never smoker Second Hand Exposure: Yes (FATHER SMOKED, SON SMOKES); Hx Alcohol Use: Yes Alcohol type: wine Hx Substance Use: No Preferred Language: Danish Communication Ability: Effective Maintenance Of Way Supervisor Required: No Beliefs That Will Affect Care: None marital status: Current Living Situation: Spouse and Family current occupational status: retired Feels Safe at Home: Yes Assistive Devices: Denture - Upper, Glasses and Walker Review of Systems Review of Systems: Constitutional: No fever, sweats or chills Eyes: No diplopia, no worsening or blurred vision ENT: normal hearing, no trouble swallowing Respiratory: No cough, sputum, dyspnea at rest or on exertion Cardiovascular: No chest pain, tightness or palpitations Abdomen: No pain, nausea, vomiting, diarrhea, + constipation, last BM was on 02/08. : Incontinence Musculoskeletal: Status post total right knee, + right foot pain, no calf pain, + RLE swelling, + bruising right foot Neurologic: + Generalized weakness, numbness/tingling, + balance problems Psychiatric: No anxiety or depression Skin: No rash or itch Physical Exam Physical Exam: General: awake, alert, no apparent distress, morbidly obese Head: Normocephalic, atraumatic ENT: PERRL, EOMI, no pharyngeal exudate, mucous membranes moist Chest: Clear to auscultation, on room air with sats 96%, no adventitious breath sounds Cardiac: Regular rate and rhythm, no murmur, no JVD, normal peripheral pulses, good capillary refill Abdominal: Hypoactive x 4 quadrants, tympanic over RUQ, soft, + mildly distended, nontender to palpation, no rebound or guarding Back: scoliosis Extremities: RLE s/p joint replacement, surrounding erythema, no purulent drainage, R foot with ecchymosis throughout, erythema and warmth extending up anterior tibial region outlined with skin marker and dated, erythema extends past previous marker line. nonpitting edema. Left leg normal inspection, no peripheral edema or erythema, calfs nontender to palpation Psych: Normal mood and affect Neuro: AAO x 3, strength intact bilaterally and rated 4/5, no motor deficits, speech is clear, no peripheral sensory deficits. Results & Data Results & Data ([facility]) Vital Signs (Past 12 Hours) Vital Signs Temp Pulse Resp BP Pulse Ox 02/19/21 15:10 36.3 C L 97 H 18 156/98 H 96 Diagnostic Findings Ankle X-Ray 02/19/21 16:35 XR ankle RT min 3V routine CLINICAL HISTORY: r ankle pain COMPARISON: None. DISCUSSION: Deformity and cortical irregularity of the right navicular bone is seen which could represent acute fracture. No evidence of fracture dislocated within ankle joint. Ankle mortise is preserved. Diffuse soft tissue edema is seen. Plantar are and posterior calcaneal spurs are seen. IMPRESSION: 1. Possible fracture of the right navicular bone. Prominent soft tissue edema. Report will be called to emergency Department. 2. Ankle mortise is preserved. ACT 112: Negative or not required by law. The above report was generated using voice recognition software. It may contain grammatical, syntax or spelling errors. Electronically signed by: Dasha Rosado DO 02/19/2021 4:55 PM Foot X-Ray 02/19/21 16:35 XR foot RT min 3V routine CLINICAL HISTORY: r foot pain COMPARISON: None. DISCUSSION: No definite acute fracture dislocation. No blastic or lytic lesions are seen. Patient is limited due to diffuse osteopenia. Plantar calcaneal spur is seen. Diffuse soft tissue edema is seen. IMPRESSION: No acute fracture dislocation. Osteopenia. ACT 112: Negative or not required by law. The above report was generated using voice recognition software. It may contain grammatical, syntax or spelling errors. Electronically signed by: Dasha Rosado DO 02/19/2021 4:49 PM Code Status & VTE Plan Code Status Full code-discussed with the patient and her at bedside
--- NOTE | 2021-02-19 16:57 | XRay Report ---
XR ankle RT min 3V routine CLINICAL HISTORY: r ankle pain COMPARISON: None. DISCUSSION: Deformity and cortical irregularity of the right navicular bone is seen which could represent acute f racture. No evidence of fracture dislocated within ankle joint. Ankle mortise is preserved. Diffuse soft tissue edema is seen. Plantar are and posterior calcaneal spurs are seen. IMPRESSION: 1. Possible fracture of the right navicular bone. Prominent soft tissue edema. Report will be called to emergency Department. 2. Ankle mortise is preserved. ACT 112: Negative or not required by law. The above report was generated using voice recognition software. It may contain grammatical, syntax o r spelling errors. Electronically signed by: Dasha Rosado DO 02/19/2021 4:55 PM
[2021-02-19 17:09] LABS: Basophils # (auto) 0.02 K/uL (0-0.2); Basophils % (auto) 0.2 %; Eosinophils # (auto) 0.15 K/uL (0-0.5); Eosinophils % (auto) 1.5 %; Immature Granulocytes # (auto) 0.04 K/uL (0.00-0.02); Immature Granulocytes % (auto) 0.4 %; Lymphocytes % (auto) 15.6 %; Mean Corpuscular Hemoglobin 29.6 pg (25-34); Mean Corpuscular Hgb Conc 32.4 g/dL (32-36); Mean Corpuscular Volume 91.1 fL (80-100); Mean Platelet Volume 8.8 fL (7.4-10.4); Monocytes # (auto) 1.12 K/uL (0.11-0.59); Monocytes % (auto) 10.9 %; Neutrophils # (auto) 7.32 K/uL (1.4-6.5); Neutrophils % (auto) 71.4 %; Platelet Count 472 K/uL (130-400); RDW Standard Deviation 47.2 fL (36.4-46.3); Red Blood Count 4.06 M/uL (4.2-5.4); White Blood Count 10.25 K/uL (4.8-10.8)
[2021-02-19 17:35] LABS: Alanine Aminotransferase 45 U/L (12-78); Aspartate Aminotransferase 25 U/L (15-37); Blood Urea Nitrogen 16 mg/dl (7-18); Carbon Dioxide 28 mmol/L (21-32); Chloride 106 mmol/L (98-107); Est GFR (African American) 79.9 ml/min; Est GFR (Non-African American) 68.9 ml/min; Glucose 125 mg/dl (70-99); Lipase 142 U/L (73-393); Potassium 4.1 mmol/L (3.5-5.1); Sodium 139 mmol/L (136-145)
[2021-02-19 17:38] LABS: Albumin Globulin Ratio 0.6 (0.9-2); Alkaline Phosphatase 88 U/L (45-117); Bilirubin,Total 0.8 mg/dl (0.2-1); Globulin 4.7 gm/dl (2.5-4.0); Total Protein 7.7 gm/dl (6.4-8.2)
[2021-02-19] MEDS ORDERED: cefTRIAXone SODIUM 1,000 MG in DEXTROSE 5% 50 ML IV SCH (18:03)
[2021-02-19] MEDS ORDERED: MAGNESIUM HYDROXIDE SUSP 30 ML UDC PO ONE (18:03)
--- NOTE | 2021-02-19 18:18 | Ultrasound Report ---
ULTRASOUND RIGHT LOWER EXTREMITY VENOUS CLINICAL HISTORY: Right leg swelling. Pain and erythema. COMPARISON STUDY: No priors. TECHNIQUE: Real-time, grayscale, and color Doppler sonography of the deep veins of the right lower ex tremity was performed from the inguinal crease to the calf. Compression and augmentation were utilize d. FINDINGS: There is no sonographic evidence of deep venous thrombosis identified in the right lower ex tremity. The common femoral, superficial femoral, and popliteal veins are patent and normally jeana sible. The greater saphenous vein and the profunda femoris vein at the junction with the common femor al vein are clear. The visualized calf veins are patent. IMPRESSION: There is no sonographic evidence of deep venous thrombosis identified in the right lower extremity. ACT 112: Negative or not required by law. Electronically signed by: Nj Busch M.D. 02/19/2021 6:17 PM
[2021-02-19] MEDS ORDERED: bisacodyL 5 MG TABEC PO ONE (20:00)
[2021-02-19] MEDS ORDERED: ONDANSETRON INJ 2 MG/ML 2 ML VIAL IV PRN (20:00)
[2021-02-19] MEDS ORDERED: PATIENT'S HEIGHT AND/OR WEIGHT NEEDED SCH (21:00)
[2021-02-19] MEDS ORDERED: POLYETHYLENE (MIRALAX) 17 GM PACK PO PRN (21:14)
[2021-02-19 23:02] LABS: Appearance Urine Clear (Clear); Bilirubin Urine Negative (Negative); Blood Urine Negative (Negative); Color Urine Yellow; Glucose Urine UA Negative (Negative); Ketones Urine Negative (Negative); Leukocyte Esterase Urine Negative (Negative); Nitrite Urine Negative (Negative); Protein Urine Negative (Negative); Specific Gravity Urine 1.018 (1.000-1.030); Urobilinogen Urine Negative (Negative); pH Urine 5.5 (4.5-7.5)
[2021-02-19] MEDS: ENOXAPARIN INJ 40 MG/0.4 ML SYR SQ SCH (23:21)
[2021-02-19] MEDS: oxyCODONE HCL IR 5 MG TAB (IMMEDIATE RELEASE) PO PRN (23:24)
[2021-02-20 05:49] LABS: Basophils # (auto) 0.01 K/uL (0-0.2); Basophils % (auto) 0.1 %; Eosinophils # (auto) 0.17 K/uL (0-0.5); Eosinophils % (auto) 1.9 %; Hematocrit (blood only) 33.9 % (37-47); Immature Granulocytes # (auto) 0.03 K/uL (0.00-0.02); Immature Granulocytes % (auto) 0.3 %; Lymphocytes # (auto) 1.71 K/uL (1.2-3.4); Lymphocytes % (auto) 19.1 %; Mean Corpuscular Hgb Conc 32.4 g/dL (32-36); Mean Corpuscular Volume 89.4 fL (80-100); Mean Platelet Volume 8.7 fL (7.4-10.4); Neutrophils # (auto) 6.21 K/uL (1.4-6.5); Neutrophils % (auto) 69.6 %; Platelet Count 427 K/uL (130-400); RDW Coefficient of Variation 14.1 % (11.5-14.5); RDW Standard Deviation 46.6 fL (36.4-46.3); Red Blood Count 3.79 M/uL (4.2-5.4); White Blood Count 8.93 K/uL (4.8-10.8)
[2021-02-20] MEDS ORDERED: cefTRIAXone SODIUM 2,000 MG in DEXTROSE 5% 50 ML IV SCH (06:00)
[2021-02-20 06:08] LABS: BUN Creatinine Ratio 19.2 (10-20); Calcium 8.6 mg/dl (8.5-10.1); Creatinine Clr Calc Pharmacy 98.2 ml/min; Est GFR (African American) 103.5 ml/min; Est GFR (Non-African American) 89.3 ml/min; Potassium 3.7 mmol/L (3.5-5.1)
--- NOTE | 2021-02-20 06:44 | Orthopedic Consultation ---
Date of Consultation February 20, 2021 Assessment & Plan (1) Ambulatory dysfunction: Xiao is s/p right TKA by Dr Ballard on 02/09, no signs of periprosthetic infection. her knee exam showing expected postoperative swelling, prineo dressing intact, no drainage from the incision. she was discharged on PO Cefadroxil , currently on Ceftriaxone. will cont to observe the knee. X-rays of her foot reveal possible fracture of the right navicular, she does have localized pain to this part of her foot and does state the pain started after her fall. she attempted to walk in the boot but feels she was having more difficulty with this, will order her a post-op shoe to see how she does in this. Ultimately will need rehab vs SNF, has started this as well. (2) Foot fracture: (3) Navicular fracture of ankle: (4) Status post total right knee replacement: Supervising Physician Co-Signing Physician Notes Patient seen and examined. Agree with MARISABEL Price's note as above. Patient notes that she did have some bruising and swelling in her foot after her knee replacement surgery, but it did seem to worsen after her fall. Examination does show some ecchymosis and swelling diffusely around her foot, but she does have some tenderness to palpation along the medial side of the midfoot in the area of the medial aspect of the navicular, correlating with the cortical irregularity seen on x-ray. The x-rays do show a very small cortical irregularity on the medial aspect of the navicular, but it is unclear whether this is acute or chronic. No navicular body fracture, talus fracture, or other ankle or foot abnormality noted. This will not require surgical intervention. She may weight-bear as tolerated. We had initially recommended a walking boot to help control pain from foot rotation during ambulation, but she was unable to tolerate the boot. We will therefore try a hard soled shoe and see how she does with this. History of Present Illness Reason for Consultation: right knee pain s/p TKA and right foot pain Attending Physician: Светлана Muhammad, History of Present Illness Xiao is a 70 [address] old patient of Dr Ballard, underwent right TKA on 02/09/[address] Ballard. She was discharged home on 02/10/21. she states that since being home, her has had a difficult time trying to take care of her. then on 02/14/2021 patient was sitting on bedside commode and attempted to get up and became unsteady, and her who was helping her witnessed her fall. since that time, she has also had pain in her right foot, as well as new bruising in that area. she currently denies fever or chills, her pain is 5/10 presently. she also admits to some redness around her lower leg/white area but feels it hasn't changed. she denies any redness or drainage from her incision. she was brought to the emergency room by her who has CMT, states that he is unable to care for his with her chronic comorbidities, falls, and increased weakness, was brought to the ER for possible rehab placement. Allergies Allergy/AdvReac Type Severity Reaction Status Date / Time adhesive Allergy Intermediate Rash, Verified 02/19/21 17:00 blistering nickel Allergy Mild Irritation Verified 02/19/21 17:00 (earrings) Home Medications Medication Instructions Recorded Confirmed Type amlodipine 5 mg tablet 5 mg PO QAM 11/23/20 02/19/21 History benazepril 40 mg tablet 40 mg PO QAM 11/23/20 02/19/21 History ergocalciferol (vitamin D2) 1,250 1,250 mcg PO WK 11/23/20 02/19/21 History mcg (50,000 unit) capsule (Vitamin D2) furosemide 40 mg tablet (Lasix) 35 mg PO QAM 11/23/20 02/19/21 History oxybutynin chloride 10 mg 20 mg PO QAM 11/23/20 02/19/21 History tablet,extended release 24 hr diclofenac sodium 1 % topical gel 4 g TOPICAL QID PRN 02/03/21 02/19/21 History aspirin 81 mg tablet,delayed 81 mg PO BID 30 Days #60 tab 02/10/21 02/19/21 Rx release cefadroxil 500 mg capsule 500 mg PO BID #28 cap 02/10/21 02/19/21 Rx oxycodone 5 mg tablet 5 mg PO Q4H PRN #30 tab MDD 6 02/10/21 02/19/21 Rx polyethylene glycol 3350 17 gram 17 g PO DAILY PRN #5 ea 02/10/21 02/19/21 Rx oral powder packet (Miralax) acetaminophen 500 mg tablet 1,000 mg PO Q8 PRN 02/19/21 02/19/21 History (Tylenol Extra Strength) Patient History Medical History Chronic back pain CKD (chronic kidney disease) stage 3, GFR 30-59 ml/min Follows with PCP Congestive heart failure Follows with [facility] Hypertension Loose right total knee arthroplasty Migraine Hx Morbid obesity Orthopnea d/t mucous accumulation and position Osteoarthritis Sleep apnea Severe per records; has cpap, but is non-compliant Urinary incontinence Urinary tract infection hx frequent Urinary urgency Surgical History Fusion of spine L3-S1 discectomy/fusion, 2018 [facility], no complications. History of anesthesia reaction "slow awakening" per patient. No h/o re-intubation or unexpected admission. 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 Beliefs That Will Affect Care: None marital status: Current Living Situation: Spouse and Family current occupational status: retired Other Information That Helps Us Care for You: No Feels Safe at Home: Yes Assistive Devices: Walker Review of Systems Constitutional: no fever and no chills Cardiovascular: no chest pain Physical Exam Physical Exam: Vital Signs Temp Pulse Pulse Resp BP BP BP 02/20/21 03:00 37.1 C 75 20 160/79 H 02/20/21 00:14 90 02/19/21 23:00 37.3 C 68 20 131/79 02/19/21 22:43 36.9 C 73 20 160/80 H 02/19/21 19:30 80 18 171/95 H 02/19/21 17:07 75 18 176/81 H 02/19/21 17:06 02/19/21 15:10 36.3 C L 97 H 18 156/98 H Pulse Ox 02/20/21 03:00 99 02/20/21 00:14 02/19/21 23:00 96 02/19/21 22:43 98 02/19/21 19:30 99 02/19/21 17:07 97 02/19/21 17:06 96 02/19/21 15:10 96 Intake and Output 02/19/21 02/19/21 02/20/21 14:59 22:59 06:59 Intake Total 200 / 550 350 / 550 Output Total 350 / 400 50 / 400 Balance -150 / 150 300 / 150 Intake: IV 50 / 50 cefTRIAXone SO DIUM 1,000 mg In 50 / 50 Dextrose 5% 50 ml @ 100 mls/hr IV Q12H [facility] Rx #:[id number] Oral 150 / 500 350 / 500 Output: Urine 350 / 350 Urine Amount (Ca theter) 50 / 50 External 50 / 50 Other: # Urine Diapers 1 Weight 117.2 kg Weight Measureme nt Method Built in [facility] Patient Weight 02/20/21 06:59 Weight 117.2 kg Constitutional: WD/WN, vitals as above Musculoskeletal: right knee: NVDI, calf SNT, negative jaci sign. DP palpable, able to wiggle toes/ankle movement.Prineo dressing clean dry and intact. expected post-operative bruising noted. right foot/ankle: she does have tenderness to palpation over her medial midfoot area, with mild erythema extending just proximal to the ankle joint, lessened from previously marked off area on 02/19 Results & Data ([facility]) Vital Signs (Past 12 Hours) Vital Signs Temp Pulse Pulse Resp BP BP Pulse Ox 02/20/21 03:00 37.1 C 75 20 160/79 H 99 02/20/21 00:14 90 02/19/21 23:00 37.3 C 68 20 131/79 96 02/19/21 22:43 36.9 C 73 20 160/80 H 98 02/19/21 19:30 80 18 171/95 H 99 Laboratory Results Laboratory Results WBC 8.93 K/uL (4.8-10.8) 02/20/21 05:40 RBC 3.79 M/uL (4.2-5.4) L 02/20/21 05:40 Hgb 11.0 g/dL (12.0-16.0) L 02/20/21 05:40 Hct 33.9 % (37-47) L 02/20/21 05:40 MCV 89.4 fL (80-100) 02/20/21 05:40 MCH 29.0 pg (25-34) 02/20/21 05:40 MCHC 32.4 g/dL (32-36) 02/20/21 05:40 RDW Std Deviation 46.6 fL (36.4-46.3) H 02/20/21 05:40 RDW Coeff of Shan 14.1 % (11.5-14.5) 02/20/21 05:40 Plt Count 427 K/uL (130-400) H 02/20/21 05:40 MPV 8.7 fL (7.4-10.4) 02/20/21 05:40 Immature Gran % (Auto) 0.3 % 02/20/21 05:40 Neut % (Auto) 69.6 % 02/20/21 05:40 Lymph % (Auto) 19.1 % 02/20/21 05:40 [place] % (Auto) 9.0 % 02/20/21 05:40 Eos % (Auto) 1.9 % 02/20/21 05:40 Baso % (Auto) 0.1 % 02/20/21 05:40 Neut # (Auto) 6.21 K/uL (1.4-6.5) 02/20/21 05:40 Lymph # (Auto) 1.71 K/uL (1.2-3.4) 02/20/21 05:40 [place] # (Auto) 0.80 K/uL (0.11-0.59) H 02/20/21 05:40 Eos # (Auto) 0.17 K/uL (0-0.5) 02/20/21 05:40 Baso # (Auto) 0.01 K/uL (0-0.2) 02/20/21 05:40 Immature Gran # (Auto) 0.03 K/uL (0.00-0.02) H 02/20/21 05:40 ESR 80 mm/hr (0-30) H 02/20/21 05:40 Sodium 138 mmol/L (136-145) 02/20/21 05:40 Potassium 3.7 mmol/L (3.5-5.1) 02/20/21 05:40 Chloride 106 mmol/L (98-107) 02/20/21 05:40 Carbon Dioxide 28 mmol/L (21-32) 02/20/21 05:40 Anion Gap 4.0 (3-11) 02/20/21 05:40 BUN 13 mg/dl (7-18) 02/20/21 05:40 Creatinine 0.65 mg/dl (0.6-1.2) 02/20/21 05:40 Est Cr Clr Drug Dosing 98.2 ml/min 02/20/21 05:40 Est GFR ( Amer) 103.5 ml/min 02/20/21 05:40 Est GFR (Non-Af Amer) 89.3 ml/min 02/20/21 05:40 BUN/Creatinine Ratio 19.2 (10-20) 02/20/21 05:40 Glucose 124 mg/dl (70-99) H 02/20/21 05:40 Lactate 0.8 mmol/L (0.4-2.0) 02/20/21 05:40 Calcium 8.6 mg/dl (8.5-10.1) 02/20/21 05:40 Total Bilirubin 0.8 mg/dl (0.2-1) 02/19/21 17:00 AST 25 U/L (15-37) 02/19/21 17:00 ALT 45 U/L (12-78) 02/19/21 17:00 Alkaline Phosphatase 88 U/L (45-117) 02/19/21 17:00 C-Reactive Protein 10.00 mg/dl (0-0.29) H 02/20/21 05:40 Total Protein 7.7 gm/dl (6.4-8.2) 02/19/21 17:00 Albumin 3.0 gm/dl (3.4-5.0) L 02/19/21 17:00 Globulin 4.7 gm/dl (2.5-4.0) H 02/19/21 17:00 Albumin/Globulin Ratio 0.6 (0.9-2) L 02/19/21 17:00 Lipase 142 U/L (73-393) 02/19/21 17:00 Urine Color Yellow 02/19/21 22:15 Urine Appearance Clear (Clear) 02/19/21 22:15 Urine pH 5.5 (4.5-7.5) 02/19/21 22:15 Ur Specific [place] 1.018 (1.000-1.030) 02/19/21 22:15 Urine Protein Negative (Negative) 02/19/21 22:15 Urine Glucose (UA) Negative (Negative) 02/19/21 22:15 Urine Ketones Negative (Negative) 02/19/21 22:15 Urine Blood Negative (Negative) 02/19/21 22:15 Urine Nitrite Negative (Negative) 02/19/21 22:15 Urine Bilirubin Negative (Negative) 02/19/21 22:15 Urine Urobilinogen Negative (Negative) 02/19/21 22:15 Ur Leukocyte Esterase Negative (Negative) 02/19/21 22:15 COVID-19 Eval Order Covid19 at [facility] 02/19/21 16:35 SARS-CoV-2 (PCR) NEGATIVE (Negative) 02/19/21 16:35 Impressions Venous Doppler Study 02/19/21 16:29 ULTRASOUND RIGHT LOWER EXTREMITY VENOUS CLINICAL HISTORY: Right leg swelling. Pain and erythema. COMPARISON STUDY: No priors. TECHNIQUE: Real-time, grayscale, and color Doppler sonography of the deep veins of the right lower extremity was performed from the inguinal crease to the calf. Compression and augmentation were utilized. FINDINGS: There is no sonographic evidence of deep venous thrombosis identified in the right lower extremity. The common femoral, superficial femoral, and popliteal veins are patent and normally compressible. The greater saphenous vein and the profunda femoris vein at the junction with the common femoral vein are clear. The visualized calf veins are patent. IMPRESSION: There is no sonographic evidence of deep venous thrombosis identified in the right lower extremity. ACT 112: Negative or not required by law. Electronically signed by: Nj Busch M.D. 02/19/2021 6:17 PM Ankle X-Ray 02/19/21 16:35 XR ankle RT min 3V routine CLINICAL HISTORY: r ankle pain COMPARISON: None. DISCUSSION: Deformity and cortical irregularity of the right navicular bone is seen which could represent acute fracture. No evidence of fracture dislocated within ankle joint. Ankle mortise is preserved. Diffuse soft tissue edema is seen. Plantar are and posterior calcaneal spurs are seen. IMPRESSION: 1. Possible fracture of the right navicular bone. Prominent soft tissue edema. Report will be called to emergency Department. 2. Ankle mortise is preserved. ACT 112: Negative or not required by law. The above report was generated using voice recognition software. It may contain grammatical, syntax or spelling errors. (1) Foot fracture Encounter type: initial encounter Fracture type: closed Laterality: right Qualified Code(s): S92.901A - Unspecified fracture of right foot, initial encounter for closed fracture
[2021-02-20] MEDS: amLODIPine BESYLATE 5 MG TAB PO SCH (08:33)
[2021-02-20] MEDS: ENOXAPARIN INJ 40 MG/0.4 ML SYR SQ SCH ×2 (08:34→20:34)
[2021-02-20] MEDS: ENALAPRIL MALEATE 10 MG TAB PO SCH (08:34)
[2021-02-20] MEDS: FUROSEMIDE 40 MG TAB PO SCH (08:34)
[2021-02-20] MEDS: OXYBUTYNIN CHLORIDE XL 5 MG TABCR PO SCH (08:34)
[2021-02-20] MEDS ORDERED: hydrALAZINE HCL 20 MG/ML VIAL IV PRN (10:46)
--- NOTE | 2021-02-20 15:32 | Hospitalist Progress Note ---
Date of Service February 20, 2021 Assessment & Plan (1) Status post total right knee replacement: Plan: She was admitted with weakness and fall with a status post right total knee replacement on 02/09/2021 Appreciate Ortho input and recommendation Expected new findings and outcome following surgery We will get PT and OT evaluation for placement Pain control ordered - constipation likely due to narcotics, will order bowel regimen PT/OT consulted-needs for likely rehab placement on DC Surrounding erythema likely postsurgical (2) Navicular fracture of ankle: Plan: Status post fall Has right navicular fracture on imaging Consult Ortho, discussed with Dr. Pelaez via phone, no current needs for surgery --likely acute based upon the ecchymosis and edema of the foot currently Possible needs for walking boot based on the patient pain level. Currently pain is well controlled. Fall precautions (3) Cellulitis: Plan: -Has been on cefadroxil 500 mg BID since surgery on 02/09, will hold this for now, concerned that erythema has extended past the previous marker line drawn on 02/15 - new outline drawn by myself and dated today -IV ceftriaxone ordered -Follow blood cultures-pending -No leukocytosis on CBC, afebrile -Will check orthostatics to r/o not becoming septic -Check ultrasound RLE to rule out DVT, patient has been taking ASA 81 mg twice daily so unlikely but higher risk due to injury on recent surgery (4) Congestive heart failure: Plan: -Last echocardiogram done on 12/23/2020, showing EF of 55 to 59%, no WMA, no valvular disease, no evidence of pulmonary hypertension. - Taking lasix 35 mg daily due to issues with incontinence - denies dysuria,but will check UA and follow urine culture to r/o. Unlikely uti with being on antibiotic since having surgery. At minimum she takes 20 mg of Lasix per day. Patient has been cutting her pills in half, as well as into quarters and dosing herself according to what her daily activities are. No signs and or symptoms of fluid overload (5) Hypertension: Plan: -Continue amlodipine 5 mg daily, Lasix as above -BP remains high -We will give hydralazine as needed as needed for blood pressure control (6) Morbid obesity: Plan: -BMI not documented as the patient has not been weighed yet, diet and exercise to be encouraged, heart healthy diet (7) Sleep apnea: Plan: -Supposed to use CPAP however is noncompliant (8) Migraine: Plan: -History of such, stable, no headache currently (9) Constipation: Plan: - Miralax, dulcolax po scheduled. Give 1x dose of milk of mag. - No BM since 02/09 (10) Chronic back pain: Plan: -History of such DVT PPx - teds, scds on nonoperative leg, ASA 81 mg twice daily CODE: Full code Dispo: From home, likely to remain in the hospital x 1-2 days, CM to assist with discharge planning Admission and Anticipated Discharge Date Admission Date: February 19, 2021 Subjective 02/20/2021 The patient was seen and examined in medical telemetry unit She has been feeling much better and denies any significant pain at rest She is getting PT and OT evaluation and will need to go for rehab Review of Systems Review of Systems: All systems reviewed and are unremarkable except as noted below Musculoskeletal: Pain in the right ankle and right knee Physical Exam Physical Exam: Lying in bed comfortably Constitutional: well developed, well nourished, + ill appearing and + obese Eyes: PERRL, conjunctivae normal, anicteric sclerae ENMT: external ear and nose normal, oropharynx normal Neck: trachea midline, no thyromegaly Respiratory: no respiratory distress and no cough Auscultation: lungs clear to auscultation bilaterally and + diminished lung sounds Cardiovascular: Rate/Rhythm: regular rate and regular rhythm; not tachycardic Heart Sounds: normal S1 and normal S2; no murmur Extremities: + edema (Trace edema bilaterally) Gastrointestinal (Abdomen): normal bowel sounds, soft, nontender, no hepatosplenomegaly Musculoskeletal: Right knee and right ankle pain with movement Neurologic: Alert, awake and oriented x3 Results & Data Results & Data ([facility]) Vital Signs (Past 12 Hours) Vital Signs Temp Pulse Pulse Resp BP Pulse Ox 02/20/21 11:49 36.9 C 77 20 170/80 H 96 02/20/21 07:38 36.7 C 73 19 171/102 H 97 02/20/21 07:18 78 Laboratory Results Short CBC 02/19/21 02/20/21 Range/Units 17:00 05:40 WBC 10.25 8.93 (4.8-10.8) K/uL Hgb 12.0 11.0 L (12.0-16.0) g/dL Hct 37.0 33.9 L (37-47) % Plt Count 472 H 427 H (130-400) K/uL BMP 02/19/21 02/20/21 17:00 05:40 Sodium 139 138 Potassium 4.1 3.7 Chloride 106 106 Carbon Dioxide 28 28 BUN 16 13 Creatinine 0.85 0.65 Glucose 125 H 124 H Calcium 9.0 8.6 Liver Function 02/19/21 Range/Units 17:00 Total Bilirubin 0.8 (0.2-1) mg/dl AST 25 (15-37) U/L ALT 45 (12-78) U/L Alkaline Phosphatase 88 (45-117) U/L Albumin 3.0 L (3.4-5.0) gm/dl Urine 02/19/21 Range/Units 22:15 Urine Color Yellow Urine Appearance Clear (Clear) Urine pH 5.5 (4.5-7.5) Ur Specific [place] 1.018 (1.000-1.030) Urine Protein Negative (Negative) Urine Glucose (UA) Negative (Negative) Medications Administered Current Inpatient Medications Acetaminophen (Acetaminophen 325 Mg Tab) 650 mg PO Q4H PRN PRN Reason: Moderate Pain Stop: 03/21/21 19:59 Amlodipine Besylate (Amlodipine Besylate 5 Mg Tab) 5 mg PO [facility] Stop: 03/22/21 08:59 Last Admin: 02/20/21 08:33 Dose: 5 mg Documented by: Enalapril Maleate (Enalapril Maleate 10 Mg Tab) 40 mg PO [facility] Stop: 03/22/21 08:59 Last Admin: 02/20/21 08:34 Dose: 40 mg Documented by: Enoxaparin Sodium (Enoxaparin Inj 40 Mg/0.4 Ml Syr) 40 mg SQ Q12H [facility] Stop: 03/21/21 21:29 Last Admin: 02/20/21 08:34 Dose: 40 mg Documented by: Furosemide (Furosemide 40 Mg Tab) 40 mg PO [facility] Stop: 03/22/21 08:59 Last Admin: 02/20/21 08:34 Dose: 40 mg Documented by: Hydralazine HCl (Hydralazine Hcl 20 Mg/Ml Vial) 10 mg IV Q6H PRN PRN Reason: Blood Pressure - High Stop: 03/22/21 10:59 Ceftriaxone Sodium 2,000 mg/ (Dextrose) 70 mls @ 100 mls/hr IV Q24H [facility]; Protocol Stop: 02/27/21 05:59 Ondansetron HCl (Ondansetron Inj 2 Mg/Ml 2 Ml Vial) 4 mg IV Q4H PRN PRN Reason: Nausea And Vomiting Stop: 03/21/21 19:59 Oxybutynin Chloride (Oxybutynin Chloride Xl 5 Mg Tabcr) [facility] Stop: 03/22/21 08:59 Last Admin: 02/20/21 08:34 Dose: 20 mg Documented by: Oxycodone HCl (Oxycodone Hcl Ir 5 Mg Tab (Immediate Release)) 5 mg PO Q4H PRN PRN Reason: pain Stop: 03/05/21 21:13 Last Admin: 02/19/21 23:24 Dose: 5 mg Documented by: Polyethylene Glycol (Polyethylene (Miralax) 17 Gm Pack) 17 gm PO DAILY PRN PRN Reason: constipation Stop: 03/21/21 21:13 Last Admin: 02/20/21 08:34 Dose: 17 gm Documented by:
[2021-02-20] MEDS: ACETAMINOPHEN 325 MG TAB PO PRN (20:34)
[2021-02-20] MEDS: cefTRIAXone SODIUM 2,000 MG in DEXTROSE 5% 50 ML IV SCH (20:35)
[2021-02-21 06:55] LABS: Hematocrit (blood only) 37.8 % (37-47); Hemoglobin 12.4 g/dL (12.0-16.0); Mean Corpuscular Hemoglobin 29.8 pg (25-34); Mean Corpuscular Hgb Conc 32.8 g/dL (32-36); Mean Corpuscular Volume 90.9 fL (80-100); Mean Platelet Volume 9.5 fL (7.4-10.4); Platelet Count 445 K/uL (130-400); RDW Coefficient of Variation 14.2 % (11.5-14.5); RDW Standard Deviation 47.1 fL (36.4-46.3); Red Blood Count 4.16 M/uL (4.2-5.4)
[2021-02-21] MEDS: FUROSEMIDE 40 MG TAB PO SCH (08:00)
[2021-02-21] MEDS: amLODIPine BESYLATE 5 MG TAB PO SCH (08:00)
[2021-02-21] MEDS: OXYBUTYNIN CHLORIDE XL 5 MG TABCR PO SCH (08:01)
[2021-02-21] MEDS: ENOXAPARIN INJ 40 MG/0.4 ML SYR SQ SCH ×2 (08:01→20:28)
[2021-02-21] MEDS: ENALAPRIL MALEATE 10 MG TAB PO SCH (08:01)
[2021-02-21] MEDS: ACETAMINOPHEN 325 MG TAB PO PRN ×2 (08:04→20:27)
--- NOTE | 2021-02-21 10:45 | Orthopedic Progress Note ---
Date of Service February 21, 2021 Assessment & Plan (1) Ambulatory dysfunction: Plan: Xiao is s/p right TKA by Dr Ballard on 02/09, no signs of periprosthetic infection. her knee continues to show normal postoperative changes, no signs of infection. she can cont with PT/OT while here in the hospital, CM working poss rehab vs SNF. will await their determination. she received the post op shoe today, will see if she handles this better than the walking boot, she can WBAT in either of these whichever is more comfortable. cont to RICE her right lower extremity. (2) Foot fracture: (3) Navicular fracture of ankle: (4) Status post total right knee replacement: Admission and Anticipated Discharge Date Admission Date: February 19, 2021 Subjective POD # 12 s/p Right TKA pain in the knee improving Review of Systems Constitutional: no fever and no chills Cardiovascular: no chest pain Gastrointestinal: no nausea and no vomiting Physical Exam Physical Exam: Vital Signs Temp Pulse Pulse Resp BP Pulse Ox 02/21/21 08:10 36.8 C 85 18 143/90 H 94 02/21/21 03:00 36.9 C 88 20 174/91 H 96 02/20/21 23:00 37.2 C 75 20 174/76 H 96 02/20/21 22:20 72 02/20/21 15:28 72 02/20/21 12:00 37 C 86 20 168/97 H 95 02/20/21 11:49 36.9 C 77 20 170/80 H 96 Intake and Output 02/20/21 02/21/21 02/21/21 22:59 06:59 14:59 Intake Total 250 / 1130 400 / 1130 Balance 250 / 1130 400 / 1130 Intake: IV 70 / 70 cefTRIAXone SO DIUM 2,000 mg In 70 / 70 Dextrose 5% 50 ml @ 100 mls/hr IV Q24H [facility] Rx #:[id number] Oral 180 / 1060 400 / 1060 Other: # Urine Diapers 2 3 Constitutional: WD/WN, vitals as above Musculoskeletal: right knee: NVDI, calf SNT, negative jaci sign. DP palpable, able to wiggle toes/ankle movement.Prineo dressing clean dry and intact there is no erythema noted to the knee joint. gentle PROM/AROM no discomfort. expected post-operative bruising noted. right foot/ankle: she does have tenderness to palpation over her medial midfoot area, with mild erythema extending just proximal to the ankle joint, lessened from previously marked off area on 02/19 Results & Data ([facility]) Vital Signs (Past 12 Hours) Vital Signs Temp Pulse Resp BP Pulse Ox 02/21/21 08:10 36.8 C 85 18 143/90 H 94 02/21/21 03:00 36.9 C 88 20 174/91 H 96 02/20/21 23:00 37.2 C 75 20 174/76 H 96 Laboratory Results Laboratory Results WBC 9.80 K/uL (4.8-10.8) 02/21/21 06:34 RBC 4.16 M/uL (4.2-5.4) L 02/21/21 06:34 Hgb 12.4 g/dL (12.0-16.0) 02/21/21 06:34 Hct 37.8 % (37-47) 02/21/21 06:34 MCV 90.9 fL (80-100) 02/21/21 06:34 MCH 29.8 pg (25-34) 02/21/21 06:34 MCHC 32.8 g/dL (32-36) 02/21/21 06:34 RDW Std Deviation 47.1 fL (36.4-46.3) H 02/21/21 06:34 RDW Coeff of Shan 14.2 % (11.5-14.5) 02/21/21 06:34 Plt Count 445 K/uL (130-400) H 02/21/21 06:34 MPV 9.5 fL (7.4-10.4) 02/21/21 06:34 Immature Gran % (Auto) 0.3 % 02/20/21 05:40 Neut % (Auto) 69.6 % 02/20/21 05:40 Lymph % (Auto) 19.1 % 02/20/21 05:40 [place] % (Auto) 9.0 % 02/20/21 05:40 Eos % (Auto) 1.9 % 02/20/21 05:40 Baso % (Auto) 0.1 % 02/20/21 05:40 Neut # (Auto) 6.21 K/uL (1.4-6.5) 02/20/21 05:40 Lymph # (Auto) 1.71 K/uL (1.2-3.4) 02/20/21 05:40 [place] # (Auto) 0.80 K/uL (0.11-0.59) H 02/20/21 05:40 Eos # (Auto) 0.17 K/uL (0-0.5) 02/20/21 05:40 Baso # (Auto) 0.01 K/uL (0-0.2) 02/20/21 05:40 Immature Gran # (Auto) 0.03 K/uL (0.00-0.02) H 02/20/21 05:40 ESR 80 mm/hr (0-30) H 02/20/21 05:40 Sodium 138 mmol/L (136-145) 02/20/21 05:40 Potassium 3.7 mmol/L (3.5-5.1) 02/20/21 05:40 Chloride 106 mmol/L (98-107) 02/20/21 05:40 Carbon Dioxide 28 mmol/L (21-32) 02/20/21 05:40 Anion Gap 4.0 (3-11) 02/20/21 05:40 BUN 13 mg/dl (7-18) 02/20/21 05:40 Creatinine 0.65 mg/dl (0.6-1.2) 02/20/21 05:40 Est Cr Clr Drug Dosing 98.2 ml/min 02/20/21 05:40 Est GFR ( Amer) 103.5 ml/min 02/20/21 05:40 Est GFR (Non-Af Amer) 89.3 ml/min 02/20/21 05:40 BUN/Creatinine Ratio 19.2 (10-20) 02/20/21 05:40 Glucose 124 mg/dl (70-99) H 02/20/21 05:40 Lactate 0.8 mmol/L (0.4-2.0) 02/20/21 05:40 Calcium 8.6 mg/dl (8.5-10.1) 02/20/21 05:40 Total Bilirubin 0.8 mg/dl (0.2-1) 02/19/21 17:00 AST 25 U/L (15-37) 02/19/21 17:00 ALT 45 U/L (12-78) 02/19/21 17:00 Alkaline Phosphatase 88 U/L (45-117) 02/19/21 17:00 C-Reactive Protein 10.00 mg/dl (0-0.29) H 02/20/21 05:40 Total Protein 7.7 gm/dl (6.4-8.2) 02/19/21 17:00 Albumin 3.0 gm/dl (3.4-5.0) L 02/19/21 17:00 Globulin 4.7 gm/dl (2.5-4.0) H 02/19/21 17:00 Albumin/Globulin Ratio 0.6 (0.9-2) L 02/19/21 17:00 Lipase 142 U/L (73-393) 02/19/21 17:00 Urine Color Yellow 02/19/21 22:15 Urine Appearance Clear (Clear) 02/19/21 22:15 Urine pH 5.5 (4.5-7.5) 02/19/21 22:15 Ur Specific [place] 1.018 (1.000-1.030) 02/19/21 22:15 Urine Protein Negative (Negative) 02/19/21 22:15 Urine Glucose (UA) Negative (Negative) 02/19/21 22:15 Urine Ketones Negative (Negative) 02/19/21 22:15 Urine Blood Negative (Negative) 02/19/21 22:15 Urine Nitrite Negative (Negative) 02/19/21 22:15 Urine Bilirubin Negative (Negative) 02/19/21 22:15 Urine Urobilinogen Negative (Negative) 02/19/21 22:15 Ur Leukocyte Esterase Negative (Negative) 02/19/21 22:15 COVID-19 Eval Order Covid19 at [facility] 02/19/21 16:35 SARS-CoV-2 (PCR) NEGATIVE (Negative) 02/19/21 16:35 Impressions Venous Doppler Study 02/19/21 16:29 ULTRASOUND RIGHT LOWER EXTREMITY VENOUS CLINICAL HISTORY: Right leg swelling. Pain and erythema. COMPARISON STUDY: No priors. TECHNIQUE: Real-time, grayscale, and color Doppler sonography of the deep veins of the right lower extremity was performed from the inguinal crease to the calf. Compression and augmentation were utilized. FINDINGS: There is no sonographic evidence of deep venous thrombosis identified in the right lower extremity. The common femoral, superficial femoral, and popliteal veins are patent and normally compressible. The greater saphenous vein and the profunda femoris vein at the junction with the common femoral vein are clear. The visualized calf veins are patent. IMPRESSION: There is no sonographic evidence of deep venous thrombosis identified in the right lower extremity. ACT 112: Negative or not required by law. Electronically signed by: Nj Busch M.D. 02/19/2021 6:17 PM Ankle X-Ray 02/19/21 16:35 XR ankle RT min 3V routine CLINICAL HISTORY: r ankle pain COMPARISON: None. DISCUSSION: Deformity and cortical irregularity of the right navicular bone is seen which could represent acute fracture. No evidence of fracture dislocated within ankle joint. Ankle mortise is preserved. Diffuse soft tissue edema is seen. Plantar are and posterior calcaneal spurs are seen. IMPRESSION: 1. Possible fracture of the right navicular bone. Prominent soft tissue edema. Report will be called to emergency Department. 2. Ankle mortise is preserved. ACT 112: Negative or not required by law. The above report was generated using voice recognition software. It may contain grammatical, syntax or spelling errors. Electronically signed by: Dasha Rosado DO 02/19/2021 4:55 PM Foot X-Ray 02/19/21 16:35 XR foot RT min 3V routine CLINICAL HISTORY: r foot pain COMPARISON: None. DISCUSSION: No definite acute fracture dislocation. No blastic or lytic lesions are seen. Patient is limited due to diffuse osteopenia. Plantar calcaneal spur is seen. Diffuse soft tissue edema is seen. IMPRESSION: No acute fracture dislocation. Osteopenia. ACT 112: Negative or not required by law. The above report was generated using voice recognition software. It may contain grammatical, syntax or spelling errors. Electronically signed by: Dasha Rosado DO 02/19/2021 4:49 PM (1) Foot fracture Encounter type: initial encounter Fracture type: closed Laterality: right Qualified Code(s): S92.901A - Unspecified fracture of right foot, initial encounter for closed fracture
[2021-02-21] MEDS: oxyCODONE HCL IR 5 MG TAB (IMMEDIATE RELEASE) PO PRN (11:29)
--- NOTE | 2021-02-21 14:11 | Hospitalist Progress Note ---
Date of Service February 21, 2021 Assessment & Plan (1) Status post total right knee replacement: Plan: She was admitted with weakness and fall with a status post right total knee replacement on 02/09/2021 Appreciate Ortho input and recommendation Expected new findings and outcome following surgery We will get PT and OT evaluation for placement Pain control ordered - constipation likely due to narcotics, will order bowel regimen PT/OT consulted-needs for likely rehab placement on DC Surrounding erythema likely postsurgical (2) Navicular fracture of ankle: Plan: Status post fall Has right navicular fracture on imaging Consult Ortho, discussed with Dr. Pelaez via phone, no current needs for surgery --likely acute based upon the ecchymosis and edema of the foot currently Possible needs for walking boot based on the patient pain level. Currently pain is well controlled. Fall precautions We will get a special shoe/boot for the right foot Has been getting PT and OT and will need rehab placement (3) Cellulitis: Plan: -Has been on cefadroxil 500 mg BID since surgery on 02/09, will hold this for now, concerned that erythema has extended past the previous marker line drawn on 02/15 - new outline drawn by myself and dated today -IV ceftriaxone ordered -Follow blood cultures-pending -No leukocytosis on CBC, afebrile -Will check orthostatics to r/o not becoming septic -Check ultrasound RLE to rule out DVT-none noted, -patient has been taking ASA 81 mg twice daily so unlikely but higher risk due to injury on recent surgery (4) Congestive heart failure: Plan: -Last echocardiogram done on 12/23/2020, showing EF of 55 to 59%, no WMA, no valvular disease, no evidence of pulmonary hypertension. - Taking lasix 35 mg daily due to issues with incontinence - denies dysuria,but will check UA and follow urine culture to r/o. Unlikely uti with being on antibiotic since having surgery. At minimum she takes 20 mg of Lasix per day. Patient has been cutting her pills in half, as well as into quarters and dosing herself according to what her daily activities are. No signs and or symptoms of fluid overload (5) Hypertension: Plan: -Continue amlodipine 5 mg daily, Lasix as above -BP remains high -We will give hydralazine as needed as needed for blood pressure control (6) Morbid obesity: Plan: -BMI not documented as the patient has not been weighed yet, diet and exercise to be encouraged, heart healthy diet (7) Sleep apnea: Plan: -Supposed to use CPAP however is noncompliant (8) Migraine: Plan: -History of such, stable, no headache currently (9) Constipation: Plan: - Miralax, dulcolax po scheduled. Give 1x dose of milk of mag. - No BM since 02/09 (10) Chronic back pain: Plan: -History of such DVT PPx - teds, scds on nonoperative leg, ASA 81 mg twice daily CODE: Full code Dispo-Will need placement Admission and Anticipated Discharge Date Admission Date: February 19, 2021 Subjective 02/20/2021 The patient was seen and examined in medical telemetry unit She has been feeling much better and denies any significant pain at rest She is getting PT and OT evaluation and will need to go for rehab 02/21/2021 The patient was seen and examined in medical telemetry unit She remains stable at rest and complains more pain in right ankle and right knee with movement Denies any other symptoms Review of Systems Review of Systems: All systems reviewed and are unremarkable except as noted below Musculoskeletal: Pain in the right ankle and right knee Physical Exam Physical Exam: Lying in bed comfortably Constitutional: well developed, well nourished, + ill appearing and + obese Eyes: PERRL, conjunctivae normal, anicteric sclerae ENMT: external ear and nose normal, oropharynx normal Neck: trachea midline, no thyromegaly Respiratory: no respiratory distress and no cough Auscultation: lungs clear to auscultation bilaterally and + diminished lung sounds Cardiovascular: Rate/Rhythm: regular rate and regular rhythm; not tachycardic Heart Sounds: normal S1 and normal S2; no murmur Extremities: + edema (Trace edema bilaterally) Gastrointestinal (Abdomen): normal bowel sounds, soft, nontender, no hepatosplenomegaly Musculoskeletal: Knee: + surgical incision (Right knee surgical incisions are good) Swelling of the right ankle with pain on movement Neurologic: Alert, awake and oriented x3. Generally weak and lethargic Results & Data Results & Data ([facility]) Vital Signs (Past 12 Hours) Vital Signs Temp Pulse Resp BP Pulse Ox 02/21/21 11:26 36.8 C 98 H 18 127/83 96 02/21/21 08:10 36.8 C 85 18 143/90 H 94 02/21/21 03:00 36.9 C 88 20 174/91 H 96 Laboratory Results Short CBC 02/21/21 Range/Units 06:34 WBC 9.80 (4.8-10.8) K/uL Hgb 12.4 (12.0-16.0) g/dL Hct 37.8 (37-47) % Plt Count 445 H (130-400) K/uL Medications Administered Current Inpatient Medications Acetaminophen (Acetaminophen 325 Mg Tab) 650 mg PO Q4H PRN PRN Reason: Moderate Pain Stop: 03/21/21 19:59 Last Admin: 02/21/21 08:04 Dose: 650 mg Documented by: Amlodipine Besylate (Amlodipine Besylate 5 Mg Tab) 5 mg PO [facility] Stop: 03/22/21 08:59 Last Admin: 02/21/21 08:00 Dose: 5 mg Documented by: Enalapril Maleate (Enalapril Maleate 10 Mg Tab) 40 mg PO [facility] Stop: 03/22/21 08:59 Last Admin: 02/21/21 08:01 Dose: 40 mg Documented by: Enoxaparin Sodium (Enoxaparin Inj 40 Mg/0.4 Ml Syr) 40 mg SQ Q12H [facility] Stop: 03/21/21 21:29 Last Admin: 02/21/21 08:01 Dose: 40 mg Documented by: Furosemide (Furosemide 40 Mg Tab) 40 mg PO [facility] Stop: 03/22/21 08:59 Last Admin: 02/21/21 08:00 Dose: 40 mg Documented by: Hydralazine HCl (Hydralazine Hcl 20 Mg/Ml Vial) 10 mg IV Q6H PRN PRN Reason: Blood Pressure - High Stop: 03/22/21 10:59 Ceftriaxone Sodium 2,000 mg/ (Dextrose) 70 mls @ 100 mls/hr IV Q24H [facility]; Protocol Stop: 02/27/21 05:59 Last Infusion: 02/20/21 21:20 Dose: Infused Documented by: Ondansetron HCl (Ondansetron Inj 2 Mg/Ml 2 Ml Vial) 4 mg IV Q4H PRN PRN Reason: Nausea And Vomiting Stop: 03/21/21 19:59 Oxybutynin Chloride (Oxybutynin Chloride Xl 5 Mg Tabcr) 20 mg PO QAM [facility] Stop: 03/22/21 08:59 Last Admin: 02/21/21 08:01 Dose: 20 mg Documented by: Oxycodone HCl (Oxycodone Hcl Ir 5 Mg Tab (Immediate Release)) 5 mg PO Q4H PRN PRN Reason: pain Stop: 03/05/21 21:13 Last Admin: 02/21/21 11:29 Dose: 5 mg Documented by: Polyethylene Glycol (Polyethylene (Miralax) 17 Gm Pack) 17 gm PO DAILY PRN PRN Reason: constipation Stop: 03/21/21 21:13 Last Admin: 02/20/21 08:34 Dose: 17 gm Documented by:
[2021-02-21] MEDS: cefTRIAXone SODIUM 2,000 MG in DEXTROSE 5% 50 ML IV SCH (20:27)
[2021-02-22] MEDS: OXYBUTYNIN CHLORIDE XL 5 MG TABCR PO SCH (08:22)
[2021-02-22] MEDS: ENOXAPARIN INJ 40 MG/0.4 ML SYR SQ SCH ×2 (08:22→20:35)
[2021-02-22] MEDS: amLODIPine BESYLATE 5 MG TAB PO SCH (08:22)
[2021-02-22] MEDS: ENALAPRIL MALEATE 10 MG TAB PO SCH (08:22)
[2021-02-22] MEDS: FUROSEMIDE 40 MG TAB PO SCH (08:22)
[2021-02-22] MEDS: ACETAMINOPHEN 325 MG TAB PO PRN ×3 (08:25→21:35)
[2021-02-22 08:29] LABS: Hematocrit (blood only) 37.7 % (37-47); Mean Corpuscular Hemoglobin 28.6 pg (25-34); Mean Corpuscular Hgb Conc 31.8 g/dL (32-36); Mean Platelet Volume 8.8 fL (7.4-10.4); Platelet Count 464 K/uL (130-400); RDW Standard Deviation 46.4 fL (36.4-46.3); Red Blood Count 4.19 M/uL (4.2-5.4)
[2021-02-22 08:59] LABS: Creatinine Clr Calc Pharmacy 78.8 ml/min; Est GFR (African American) 84.7 ml/min; Est GFR (Non-African American) 73.1 ml/min
--- NOTE | 2021-02-22 15:59 | Hospitalist Progress Note ---
Date of Service February 22, 2021 Assessment & Plan (1) Status post total right knee replacement: Plan: She was admitted with weakness and fall with a status post right total knee replacement on 02/09/2021 Appreciate Ortho input and recommendation Expected new findings and outcome following surgery We will get PT and OT evaluation for placement Pain control ordered - constipation likely due to narcotics, will order bowel regimen PT/OT consulted-needs for likely rehab placement on DC Surrounding erythema likely postsurgical (2) Navicular fracture of ankle: Plan: Status post fall Has right navicular fracture on imaging Consult Ortho, discussed with Dr. Pelaez via phone, no current needs for surgery --likely acute based upon the ecchymosis and edema of the foot currently Possible needs for walking boot based on the patient pain level. Currently pain is well controlled. Fall precautions We will get a special shoe/boot for the right foot Has been getting PT and OT and will need rehab placement Has got the appropriate shoe and getting physical therapy Awaiting rehab placement (3) Cellulitis: Plan: -Has been on cefadroxil 500 mg BID since surgery on 02/09, will hold this for now, concerned that erythema has extended past the previous marker line drawn on 02/15 - new outline drawn by myself and dated today -IV ceftriaxone ordered -Follow blood cultures-pending -No leukocytosis on CBC, afebrile -Will check orthostatics to r/o not becoming septic -Check ultrasound RLE to rule out DVT-none noted, -patient has been taking ASA 81 mg twice daily so unlikely but higher risk due to injury on recent surgery -Cellulitis has improved a lot -We will change to oral antibiotic on discharge (4) Congestive heart failure: Plan: -Chronic diastolic heart failure -Last echocardiogram done on 12/23/2020, showing EF of 55 to 59%, no WMA, no valvular disease, no evidence of pulmonary hypertension. - Taking lasix 35 mg daily due to issues with incontinence - denies dysuria,but will check UA and follow urine culture to r/o. Unlikely uti with being on antib iotic since having surgery. At minimum she takes 20 mg of Lasix per day. Patient has been cutting her pills in half, as well as into quarters and dosing herself according to what her daily activities are. No signs and or symptoms of fluid overload (5) Hypertension: Plan: -Continue amlodipine 5 mg daily, Lasix as above -BP remains high -We will give hydralazine as needed as needed for blood pressure control (6) Morbid obesity: Plan: -BMI not documented as the patient has not been weighed yet, diet and exercise to be encouraged, heart healthy diet (7) Sleep apnea: Plan: -Supposed to use CPAP however is noncompliant (8) Migraine: Plan: -History of such, stable, no headache currently (9) Constipation: Plan: - Miralax, dulcolax po scheduled. Give 1x dose of milk of mag. - No BM since 02/09 (10) Chronic back pain: Plan: -History of such DVT PPx - teds, scds on nonoperative leg, ASA 81 mg twice daily CODE: Full code Dispo-Will need placement Admission and Anticipated Discharge Date Admission Date: February 19, 2021 Subjective 02/20/2021 The patient was seen and examined in medical telemetry unit She has been feeling much better and denies any significant pain at rest She is getting PT and OT evaluation and will need to go for rehab 02/21/2021 The patient was seen and examined in medical telemetry unit She remains stable at rest and complains more pain in right ankle and right knee with movement Denies any other symptoms 02/22/2021 The patient was seen and examined in medical telemetry unit She has been feeling much better Complains of pain in the right ankle and right knee with movement and physical therapy Denies any chest pain, palpitation or shortness of breath Review of Systems Review of Systems: All systems reviewed and are unremarkable except as noted below Musculoskeletal: Pain in the right ankle and right knee Physical Exam Physical Exam: Lying in bed comfortably Constitutional: well developed, well nourished, + ill appearing and + obese Eyes: PERRL, conjunctivae normal, anicteric sclerae ENMT: external ear and nose normal, oropharynx normal Neck: trachea midline, no thyromegaly Respiratory: no respiratory distress and no cough Auscultation: lungs clear to auscultation bilaterally and + diminished lung sounds Cardiovascular: Rate/Rhythm: regular rate and regular rhythm; not tachycardic Heart Sounds: normal S1 and normal S2; no murmur Extremities: + edema (Trace edema bilaterally) Gastrointestinal (Abdomen): normal bowel sounds, soft, nontender, no hepato splenomegaly Musculoskeletal: Knee: + surgical incision (Right knee surgical incisions are good) Neurologic: PERRL, EOMI, accommodation nl, no face palsy, no dysarthria Lymphatic: no cervical or axillary lymphadenopathy Results & Data Results & Data ([facility]) Vital Signs (Past 12 Hours) Vital Signs Temp Pulse Resp BP Pulse Ox 02/22/21 15:32 36.8 C 90 20 136/81 93 02/22/21 11:11 36.8 C 100 H 20 126/78 94 02/22/21 07:59 36.9 C 82 18 146/84 H 96 Laboratory Results Short CBC 02/22/21 Range/Units 07:53 WBC 9.80 (4.8-10.8) K/uL Hgb 12.0 (12.0-16.0) g/dL Hct 37.7 (37-47) % Plt Count 464 H (130-400) K/uL BMP 02/22/21 07:53 Creatinine 0.81 Medications Administered Current Inpatient Medications Acetaminophen (Acetaminophen 325 Mg Tab) 650 mg PO Q4H PRN PRN Reason: Moderate Pain Stop: 03/21/21 19:59 Last Admin: 02/22/21 08:25 Dose: 650 mg Documented by: Amlodipine Besylate (Amlodipine Besylate 5 Mg Tab) [facility] Stop: 03/22/21 08:59 Last Admin: 02/22/21 08:22 Dose: 5 mg Documented by: Enalapril Maleate (Enalapril Maleate 10 Mg Tab) 40 [facility] Stop: 03/22/21 08:59 Last Admin: 02/22/21 08:22 Dose: 40 mg Documented by: Enoxaparin Sodium (Enoxaparin Inj 40 Mg/0.4 Ml Syr) 40 mg SQ Q12H [facility] Stop: 03/21/21 21:29 Last Admin: 02/22/21 08:22 Dose: 40 mg Documented by: Furosemide (Furosemide 40 Mg Tab) 40 mg PO QAM [facility] Stop: 03/22/21 08:59 Last Admin: 02/22/21 08:22 Dose: 40 mg Documented by: Hydralazine HCl (Hydralazine Hcl 20 Mg/Ml Vial) 10 mg IV Q6H PRN PRN Reason: Blood Pressure - High Stop: 03/22/21 10:59 Ceftriaxone Sodium 2,000 mg/ (Dextrose) 70 mls @ 100 mls/hr IV Q24H [facility]; Protocol Stop: 02/27/21 05:59 Last Infusion: 02/21/21 21:30 Dose: Infused Documented by: Ondansetron HCl (Ondansetron Inj 2 Mg/Ml 2 Ml Vial) 4 mg IV Q4H PRN PRN Reason: Nausea And Vomiting Stop: 03/21/21 19:59 Oxybutynin Chloride (Oxybutynin Chloride Xl 5 Mg Tabcr) 20 mg PO QAM [facility] Stop: 03/22/21 08:59 Last Admin: 02/22/21 08:22 Dose: 20 mg Documented by: Oxycodone HCl (Oxycodone Hcl Ir 5 Mg Tab (Immediate Release)) 5 mg PO Q4H PRN PRN Reason: pain Stop: 03/05/21 21:13 Last Admin: 02/21/21 11:29 Dose: 5 mg Documented by: Polyethylene Glycol (Polyethylene (Miralax) 17 Gm Pack) 17 gm PO DAILY PRN PRN Reason: constipation Stop: 03/21/21 21:13 Last Admin: 02/20/21 08:34 Dose: 17 gm Documented by:
[2021-02-22] MEDS: cefTRIAXone SODIUM 2,000 MG in DEXTROSE 5% 50 ML IV SCH (20:34)
[2021-02-23] MEDS: ENALAPRIL MALEATE 10 MG TAB PO SCH (07:50)
[2021-02-23] MEDS: FUROSEMIDE 40 MG TAB PO SCH (07:50)
[2021-02-23] MEDS: ENOXAPARIN INJ 40 MG/0.4 ML SYR SQ SCH ×2 (07:50→20:35)
[2021-02-23] MEDS: ACETAMINOPHEN 325 MG TAB PO PRN ×2 (07:50→19:31)
[2021-02-23] MEDS: OXYBUTYNIN CHLORIDE XL 5 MG TABCR PO SCH (07:51)
[2021-02-23] MEDS: amLODIPine BESYLATE 5 MG TAB PO SCH (07:51)
--- NOTE | 2021-02-23 09:57 | Hospitalist Progress Note ---
Date of Service February 23, 2021 Assessment & Plan (1) Status post total right knee replacement: Plan: She was admitted with weakness and fall with a status post right total knee replacement on 02/09/2021 Appreciate Ortho input and recommendation Expected new findings and outcome following surgery We will get PT and OT evaluation for placement Pain control ordered - constipation likely due to narcotics, will order bowel regimen PT/OT consulted-needs for likely rehab placement on DC Surrounding erythema likely postsurgical-normalized (2) Navicular fracture of ankle: Plan: Status post fall Has right navicular fracture on imaging Consult Ortho, discussed with Dr. Pelaez via phone, no current needs for surgery --likely acute based upon the ecchymosis and edema of the foot currently Possible needs for walking boot based on the patient pain level. Currently pain is well controlled. Fall precautions We will get a special shoe/boot for the right foot Has been getting PT and OT and will need rehab placement Has got the appropriate shoe and getting physical therapy Awaiting rehab placement-likely be discharged to [facility] this afternoon (3) Cellulitis: Plan: -Has been on cefadroxil 500 mg BID since surgery on 02/09, will hold this for now, concerned that erythema has extended past the previous marker line drawn on 02/15 - new outline drawn by myself and dated today -IV ceftriaxone ordered -Follow blood cultures-pending -No leukocytosis on CBC, afebrile -Will check orthostatics to r/o not becoming septic -Check ultrasound RLE to rule out DVT-none noted, -patient has been taking ASA 81 mg twice daily so unlikely but higher risk due to injury on recent surgery -Cellulitis has improved a lot -We will change to oral antibiotic on discharge (4) Congestive heart failure: Plan: -Chronic diastolic heart failure -Last echocardiogram done on 12/23/2020, showing EF of 55 to 59%, no WMA, no valvular disease, no evidence of pulmonary hypertension. - Taking lasix 35 mg daily due to issues with incontinence - denies dysuria,but will check UA and follow urine culture to r/o. Unlikely uti with being on antibiotic since having surgery. At minimum she takes 20 mg of Lasix per day. Patient has been cutting her pills in half, as well as into quarters and dosing herself according to what her daily activities are. No signs and or symptoms of fluid overload (5) Hypertension: Plan: -Continue amlodipine 5 mg daily, Lasix as above -BP remains stable -We will give hydralazine as needed as needed for blood pressure control (6) Morbid obesity: Plan: -BMI not documented as the patient has not been weighed yet, diet and exercise to be encouraged, heart healthy diet (7) Sleep apnea: Plan: -Supposed to use CPAP however is noncompliant (8) Migraine: Plan: -History of such, stable, no headache currently (9) Constipation: Plan: - Miralax, dulcolax po scheduled. Give 1x dose of milk of mag. - No BM since 02/09 (10) Chronic back pain: Plan: -History of such DVT PPx - teds, scds on nonoperative leg, ASA 81 mg twice daily CODE: Full code Dispo-Will need placement Plan: Should be transferred to [facility] on approval Admission and Anticipated Discharge Date Admission Date: February 19, 2021 Subjective 02/20/2021 The patient was seen and examined in medical telemetry unit She has been feeling much better and denies any significant pain at rest She is getting PT and OT evaluation and will need to go for rehab 02/21/2021 The patient was seen and examined in medical telemetry unit She remains stable at rest and complains more pain in right ankle and right knee with movement Denies any other symptoms 02/22/2021 The patient was seen and examined in medical telemetry unit She has been feeling much better Complains of pain in the right ankle and right knee with movement and physical therapy Denies any chest pain, palpitation or shortness of breath 02/23/2021 The patient was seen and examined in medical telemetry unit She complains to pain in the right ankle and right knee but has been better for the last 2 days She denies any other symptoms Review of Systems Review of Systems: All systems reviewed and are unremarkable except as noted below Musculoskeletal: Pain in the right ankle and right knee Physical Exam Physical Exam: Sitting on a chair without any acute distress Constitutional: well developed, well nourished, + ill appearing and + obese Eyes: PERRL, conjunctivae normal, anicteric sclerae ENMT: external ear and nose normal, oropharynx normal Neck: trachea midline, no thyromegaly Respiratory: no respiratory distress and no cough Auscultation: lungs clear to auscultation bilaterally and + diminished lung sounds Cardiovascular: Rate/Rhythm: regular rate and regular rhythm; not tachycardic Heart Sounds: normal S1 and normal S2; no murmur Extremities: + edema (Trace edema bilaterally) Gastrointestinal (Abdomen): normal bowel sounds, soft, nontender, no hepatosplenomegaly Musculoskeletal: Knee: + surgical incision (Right knee surgical incisions are good. Right ankle pain is improved ) Skin: Redness involving the right leg has disappeared . Neurologic: PERRL, EOMI, accommodation nl, no face palsy, no dysarthria Lymphatic: no cervical or axillary lymphadenopathy Results & Data Results & Data ([facility]) Vital Signs (Past 12 Hours) Vital Signs Temp Pulse Pulse Resp BP BP Pulse Ox 02/23/21 07:46 36.8 C 81 18 147/88 H 96 02/23/21 02:41 71 02/22/21 23:00 36.7 C 84 18 134/79 95 Medications Administered Current Inpatient Medications Acetaminophen (Acetaminophen 325 Mg Tab) 650 mg PO Q4H PRN PRN Reason: Moderate Pain Stop: 03/21/21 19:59 Last Admin: 02/23/21 07:50 Dose: 650 mg Documented by: Amlodipine Besylate (Amlodipine Besylate 5 Mg Tab) [facility] Stop: 03/22/21 08:59 Last Admin: 02/23/21 07:51 Dose: 5 mg Documented by: Enalapril Maleate (Enalapril Maleate 10 Mg Tab) [facility] Stop: 03/22/21 08:59 Last Admin: 02/23/21 07:50 Dose: 40 mg Documented by: Enoxaparin Sodium (Enoxaparin Inj 40 Mg/0.4 Ml Syr) 40 mg SQ Q12H [facility] Stop: 03/21/21 21:29 Last Admin: 02/23/21 07:50 Dose: 40 mg Documented by: Furosemide (Furosemide 40 Mg Tab) 40 mg PO QAM [facility] Stop: 03/22/21 08:59 Last Admin: 02/23/21 07:50 Dose: 40 mg Documented by: Hydralazine HCl (Hydralazine Hcl 20 Mg/Ml Vial) 10 mg IV Q6H PRN PRN Reason: Blood Pressure - High Stop: 03/22/21 10:59 Ceftriaxone Sodium 2,000 mg/ (Dextrose) 70 mls @ 100 mls/hr IV Q24H [facility]; Protocol Stop: 02/27/21 05:59 Last Infusion: 02/22/21 22:35 Dose: Infused Documented by: Ondansetron HCl (Ondansetron Inj 2 Mg/Ml 2 Ml Vial) 4 mg IV Q4H PRN PRN Reason: Nausea And Vomiting Stop: 03/21/21 19:59 Oxybutynin Chloride (Oxybutynin Chloride Xl 5 Mg Tabcr) [facility] Stop: 03/22/21 08:59 Last Admin: 02/23/21 07:51 Dose: 20 mg Documented by: Oxycodone HCl (Oxycodone Hcl Ir 5 Mg Tab (Immediate Release)) 5 mg PO Q4H PRN PRN Reason: pain Stop: 03/05/21 21:13 Last Admin: 02/21/21 11:29 Dose: 5 mg Documented by: Polyethylene Glycol (Polyethylene (Miralax) 17 Gm Pack) 17 gm PO DAILY PRN PRN Reason: constipation Stop: 03/21/21 21:13 Last Admin: 02/20/21 08:34 Dose: 17 gm Documented by:
[2021-02-23] MEDS: cefTRIAXone SODIUM 2,000 MG in DEXTROSE 5% 50 ML IV SCH (19:30)
[2021-02-24] MEDS: ENOXAPARIN INJ 40 MG/0.4 ML SYR SQ SCH ×2 (08:33→20:05)
[2021-02-24] MEDS: ACETAMINOPHEN 325 MG TAB PO PRN (08:33)
[2021-02-24] MEDS: ENALAPRIL MALEATE 10 MG TAB PO SCH (08:34)
[2021-02-24] MEDS: FUROSEMIDE 40 MG TAB PO SCH (08:34)
[2021-02-24] MEDS: OXYBUTYNIN CHLORIDE XL 5 MG TABCR PO SCH (08:35)
[2021-02-24] MEDS: amLODIPine BESYLATE 5 MG TAB PO SCH (08:35)
--- NOTE | 2021-02-24 16:47 | Hospitalist Progress Note ---
Date of Service February 24, 2021 Assessment & Plan (1) Status post total right knee replacement: Plan: She was admitted with weakness and fall with a status post right total knee replacement on 02/09/2021 Appreciate Ortho input and recommendation Expected new findings and outcome following surgery We will get PT and OT evaluation for placement Pain control ordered - constipation likely due to narcotics, will order bowel regimen PT/OT consulted-needs for likely rehab placement on [place] Surrounding erythema likely postsurgical-normalized Remains stable and has been waiting to be transferred to rehab (2) Navicular fracture of ankle: Plan: Status post fall Has right navicular fracture on imaging Consult Ortho, discussed with Dr. Pelaez via phone, no current needs for surgery --likely acute based upon the ecchymosis and edema of the foot currently Possible needs for walking boot based on the patient pain level. Currently pain is well controlled. Fall precautions We will get a special shoe/boot for the right foot Has been getting PT and OT and will need rehab placement Has got the appropriate shoe and getting physical therapy Awaiting rehab placement-likely be discharged to [facility] this afternoon No pain (3) Cellulitis: Plan: -Has been on cefadroxil 500 mg BID since surgery on 02/09, will hold this for now, concerned that erythema has extended past the previous marker line drawn on 02/15 - new outline drawn by myself and dated today -IV ceftriaxone ordered -Follow blood cultures-pending -No leukocytosis on CBC, afebrile -Will check orthostatics to r/o not becoming septic -Check ultrasound RLE to rule out DVT-none noted, -patient has been taking ASA 81 mg twice daily so unlikely but higher risk due to injury on recent surgery -Cellulitis has improved a lot -We will change to oral antibiotic on discharge -Redness is completely gone (4) Congestive heart failure: Plan: -Chronic diastolic heart failure -Last echocardiogram done on 12/23/2020, showing EF of 55 to 59%, no WMA, no valvular disease, no evidence of pulmonary hypertension. - Taking lasix 35 mg daily due to issues with incontinence - denies dysuria,but will check UA and follow urine culture to r/o. Unlikely uti with being on antibiotic since having surgery. At minimum she takes 20 mg of Lasix per day. Patient has been cutting her pills in half, as well as into quarters and dosing herself according to what her daily activities are. No signs and or symptoms of fluid overload (5) Hypertension: Plan: -Continue amlodipine 5 mg daily, Lasix as above -BP remains stable -We will give hydralazine as needed as needed for blood pressure control (6) Morbid obesity: Plan: -BMI not documented as the patient has not been weighed yet, diet and exercise to be encouraged, heart healthy diet (7) Sleep apnea: Plan: -Supposed to use CPAP however is noncompliant (8) Migraine: Plan: -History of such, stable, no headache currently (9) Constipation: Plan: - Miralax, dulcolax po scheduled. Give 1x dose of milk of mag. - No BM since 02/09 (10) Chronic back pain: Plan: -History of such DVT PPx - teds, scds on nonoperative leg, ASA 81 mg twice daily CODE: Full code Dispo-Will need placement Plan: Should be transferred to [facility] on approval Admission and Anticipated Discharge Date Admission Date: February 19, 2021 Subjective 02/20/2021 The patient was seen and examined in medical telemetry unit She has been feeling much better and denies any significant pain at rest She is getting PT and OT evaluation and will need to go for rehab 02/21/2021 The patient was seen and examined in medical telemetry unit She remains stable at rest and complains more pain in right ankle and right knee with movement Denies any other symptoms 02/22/2021 The patient was seen and examined in medical telemetry unit She has been feeling much better Complains of pain in the right ankle and right knee with movement and physical therapy Denies any chest pain, palpitation or shortness of breath 02/23/2021 The patient was seen and examined in medical telemetry unit She complains to pain in the right ankle and right knee but has been better for the last 2 days She denies any other symptoms 02/24/2021 The patient was seen and examined in medical telemetry unit She has been waiting to go to rehab Denies any significant symptoms Review of Systems Review of Systems: All systems reviewed and are unremarkable except as noted below Musculoskeletal: Pain in the right ankle and right knee Physical Exam Physical Exam: Sitting on a chair without any acute distress Constitutional: well developed, well nourished, + ill appearing and + obese Eyes: PERRL, conjunctivae normal, anicteric sclerae ENMT: external ear and nose normal, oropharynx normal Neck: trachea midline, no thyromegaly Respiratory: no respiratory distress and no cough Auscultation: lungs clear to auscultation bilaterally and + diminished lung sounds Cardiovascular: Rate/Rhythm: regular rate and regular rhythm; not tachycardic Heart Sounds: normal S1 and normal S2; no murmur Extremities: + edema (Trace edema bilaterally) Gastrointestinal (Abdomen): normal bowel sounds, soft, nontender, no hepatosplenomegaly Musculoskeletal: Knee: + surgical incision (Right knee surgical incisions are good. Right ankle pain is improved ) Neurologic: PERRL, EOMI, accommodation nl, no face palsy, no dysarthria Lymphatic: no cervical or axillary lymphadenopathy Results & Data Results & Data ([facility]) Vital Signs (Past 12 Hours) Vital Signs Temp Pulse Pulse Resp BP Pulse Ox 02/24/21 16:16 36.5 C 78 19 115/74 98 02/24/21 08:17 36.9 C 78 20 128/80 97 02/24/21 08:00 85
[2021-02-24] MEDS: cefTRIAXone SODIUM 2,000 MG in DEXTROSE 5% 50 ML IV SCH (20:04)
[2021-02-25] MEDS: ACETAMINOPHEN 325 MG TAB PO PRN (06:01)
[2021-02-25] MEDS: OXYBUTYNIN CHLORIDE XL 5 MG TABCR PO SCH (08:19)
[2021-02-25] MEDS: FUROSEMIDE 40 MG TAB PO SCH (08:19)
[2021-02-25] MEDS: amLODIPine BESYLATE 5 MG TAB PO SCH (08:19)
[2021-02-25] MEDS: ENOXAPARIN INJ 40 MG/0.4 ML SYR SQ SCH (08:20)
[2021-02-25] MEDS: ENALAPRIL MALEATE 10 MG TAB PO SCH (08:20)
[2021-02-25 09:31] LABS: Creatinine Clr Calc Pharmacy 72.6 ml/min; Est GFR (African American) 77.7 ml/min
--- NOTE | 2021-02-25 10:53 | Hospitalist Progress Note ---
Date of Service February 25, 2021 Assessment & Plan (1) Status post total right knee replacement: Plan: She was admitted with weakness and fall with a status post right total knee replacement on 02/09/2021 Appreciate Ortho input and recommendation Expected new findings and outcome following surgery We will get PT and OT evaluation for placement Pain control ordered - constipation likely due to narcotics, will order bowel regimen PT/OT consulted-needs for likely rehab placement on [place] Surrounding erythema likely postsurgical-normalized Remains stable and has been waiting to be transferred to rehab No acute symptoms with the knee joint (2) Navicular fracture of ankle: Plan: Status post fall Has right navicular fracture on imaging Consult Ortho, discussed with Dr. Pelaez via phone, no current needs for surgery --likely acute based upon the ecchymosis and edema of the foot currently Possible needs for walking boot based on the patient pain level. Currently pain is well controlled. Fall precautions We will get a special shoe/boot for the right foot Has been getting PT and OT and will need rehab placement Has got the appropriate shoe and getting physical therapy Awaiting rehab placement-[facility] No pain-continue physical therapy (3) Cellulitis: Plan: -Has been on cefadroxil 500 mg BID since surgery on 02/09, will hold this for now, concerned that erythema has extended past the previous marker line drawn on 02/15 - new outline drawn by myself and dated today -IV ceftriaxone ordered -Follow blood cultures-pending -No leukocytosis on CBC, afebrile -Will check orthostatics to r/o not becoming septic -Check ultrasound RLE to rule out DVT-none noted, -patient has been taking ASA 81 mg twice daily so unlikely but higher risk due to injury on recent surgery -Cellulitis has improved a lot -We will change to oral antibiotic on discharge -Redness is completely gone-we will discontinue antibiotic (4) Congestive heart failure: Plan: -Chronic diastolic heart failure -Last echocardiogram done on 12/23/2020, showing EF of 55 to 59%, no WMA, no valvular disease, no evidence of pulmonary hypertension. - Taking lasix 35 mg daily due to issues with incontinence - denies dysuria,but will check UA and follow urine culture to r/o. Unlikely uti with being on antibiotic since having surgery. At minimum she takes 20 mg of Lasix per day. Patient has been cutting her pills in half, as well as into quarters and dosing herself according to what her daily activities are. No signs and or symptoms of fluid overload (5) Hypertension: Plan: -Continue amlodipine 5 mg daily, Lasix as above -BP remains stable -We will give hydralazine as needed as needed for blood pressure control Remains controlled (6) Morbid obesity: Plan: -BMI not documented as the patient has not been weighed yet, diet and exercise to be encouraged, heart healthy diet (7) Sleep apnea: Plan: -Supposed to use CPAP however is noncompliant (8) Migraine: Plan: -History of such, stable, no headache currently (9) Constipation: Plan: - Miralax, dulcolax po scheduled. Give 1x dose of milk of mag. - No BM since 02/09 (10) Chronic back pain: Plan: -History of such DVT PPx - teds, scds on nonoperative leg, ASA 81 mg twice daily CODE: Full code Dispo-she will be discharged to [facility] at 1:30 this afternoon Plan: [facility] Admission and Anticipated Discharge Date Admission Date: February 19, 2021 Subjective 02/20/2021 The patient was seen and examined in medical telemetry unit She has been feeling much better and denies any significant pain at rest She is getting PT and OT evaluation and will need to go for rehab 02/21/2021 The patient was seen and examined in medical telemetry unit She remains stable at rest and complains more pain in right ankle and right knee with movement Denies any other symptoms 02/22/2021 The patient was seen and examined in medical telemetry unit She has been feeling much better Complains of pain in the right ankle and right knee with movement and physical therapy Denies any chest pain, palpitation or shortness of breath 02/23/2021 The patient was seen and examined in medical telemetry unit She complains to pain in the right ankle and right knee but has been better for the last 2 days She denies any other symptoms 02/24/2021 The patient was seen and examined in medical telemetry unit She has been waiting to go to rehab Denies any significant symptoms 02/25/2021 The patient was seen and examined in medical telemetry unit She has been stable for the last few days Denies any significant symptoms She will be discharged to [facility] at 1:30 this afternoon Review of Systems Review of Systems: All systems reviewed and are unremarkable except as noted below Musculoskeletal: Pain in the right ankle and right knee Physical Exam Physical Exam: Sitting on a chair without any acute distress Constitutional: well developed, well nourished, + ill appearing and + obese Eyes: PERRL, conjunctivae normal, anicteric sclerae ENMT: external ear and nose normal, oropharynx normal Neck: trachea midline, no thyromegaly Respiratory: no respiratory distress and no cough Auscultation: lungs clear to auscultation bilaterally and + diminished lung sounds Cardiovascular: Rate/Rhythm: regular rate and regular rhythm; not tachycardic Heart Sounds: normal S1 and normal S2; no murmur Extremities: + edema (Trace edema bilaterally) Gastrointestinal (Abdomen): normal bowel sounds, soft, nontender, no hepatosplenomegaly Musculoskeletal: Knee: + surgical incision (Right knee surgical incisions are good. Right ankle pain is improved ) Neurologic: PERRL, EOMI, accommodation nl, no face palsy, no dysarthria Lymphatic: no cervical or axillary lymphadenopathy Results & Data Results & Data ([facility]) Vital Signs (Past 12 Hours) Vital Signs Temp Pulse Pulse Resp BP BP Pulse Ox 02/25/21 07:46 36.6 C 75 16 150/84 H 93 02/25/21 04:00 36.9 C 93 H 18 147/88 H 94 02/25/21 00:00 76 02/24/21 23:00 36.8 C 74 18 165/84 H 94 Laboratory Results BMP 02/25/21 08:32 Creatinine 0.87 Medications Administered Current Inpatient Medications Acetaminophen (Acetaminophen 325 Mg Tab) 650 mg PO Q4H PRN PRN Reason: Moderate Pain Stop: 03/21/21 19:59 Last Admin: 02/25/21 06:01 Dose: 650 mg Documented by: Amlodipine Besylate (Amlodipine Besylate 5 Mg Tab) [facility] Stop: 03/22/21 08:59 Last Admin: 02/25/21 08:19 Dose: 5 mg Documented by: Enalapril Maleate (Enalapril Maleate 10 Mg Tab) 40 mg PO [facility] Stop: 03/22/21 08:59 Last Admin: 02/25/21 08:20 Dose: 40 mg Documented by: Enoxaparin Sodium (Enoxaparin Inj 40 Mg/0.4 Ml Syr) 40 mg SQ Q12H [facility] Stop: 03/21/21 21:29 Last Admin: 02/25/21 08:20 Dose: 40 mg Documented by: Furosemide (Furosemide 40 Mg Tab) 40 mg PO QAM [facility] Stop: 03/22/21 08:59 Last Admin: 02/25/21 08:19 Dose: 40 mg Documented by: Hydralazine HCl (Hydralazine Hcl 20 Mg/Ml Vial) 10 mg IV Q6H PRN PRN Reason: Blood Pressure - High Stop: 03/22/21 10:59 Ceftriaxone Sodium 2,000 mg/ (Dextrose) 70 mls @ 100 mls/hr IV Q24H [facility]; Protocol Stop: 02/27/21 05:59 Last Infusion: 02/24/21 20:53 Dose: Infused Documented by: Ondansetron HCl (Ondansetron Inj 2 Mg/Ml 2 Ml Vial) 4 mg IV Q4H PRN PRN Reason: Nausea And Vomiting Stop: 03/21/21 19:59 Oxybutynin Chloride (Oxybutynin Chloride Xl 5 Mg Tabcr) 20 mg PO [facility] Stop: 03/22/21 08:59 Last Admin: 02/25/21 08:19 Dose: 20 mg Documented by: Oxycodone HCl (Oxycodone Hcl Ir 5 Mg Tab (Immediate Release)) 5 mg PO Q4H PRN PRN Reason: pain Stop: 03/05/21 21:13 Last Admin: 02/21/21 11:29 Dose: 5 mg Documented by: Polyethylene Glycol (Polyethylene (Miralax) 17 Gm Pack) 17 gm PO DAILY PRN PRN Reason: constipation Stop: 03/21/21 21:13 Last Admin: 02/20/21 08:34 Dose: 17 gm Documented by:
--- NOTE | 2021-02-26 07:24 | Discharge Summary ---
Date of Service February 26, 2021 Admission HPI Per Admitting Provider This is a 70 yo F with PMHx of HTN, CHF, CKD, chronic back pain, morbid obesity, orthopnea, JAGDEEP on cpap, who presented to the ER for complaints of weakness, fall, request for placement. Mrs. Miguel is s/p right knee replacement surgery on 02/09/[address] Ballard. She was discharged home on 02/12/21. She was placed on cefadroxil 500 mg BID for 14 days after surgery for concern for rash/cellulitis in distal operative leg. Pt has been taking the antibiotic as directed, as well as baby aspirin twice daily. Last 02/14/2021 patient was sitting on bedside commode and attempted to get up however felt weak, became unsteady, and her who was helping her witnessed her fall. He grabbed onto her arms and pulled her backwards on top of himself, so that she did not fall forward and onto the knee she just had surgery on. Since then she has had a dull aching pain in her right foot and there is significant bruising to the area. The redness around her right foot is still present. On Monday, home PT/OT came to visit her at her home and outlined the red area, currently the redness extends past the line that was previously drawn. She denies any fevers, chills or sweats. Her knee feels good, swelling has c ontinued to improve, there is minimal redness surrounding the knee however no purulent discharge and no worsening ability to move the knee. She has been taking oxycodone as needed for pain, Tylenol but feels that her pain has not been well controlled, specifically in the right lower leg. She reports that her bowels have not moved since 02/08 and does not have MiraLAX at home. She did take a stool softener the last 2 days but has not prompted bowel movement. Other issues include incontinence which causes significant disturbance in her sleep, and is on Lasix for CHF. Instead of taking 40 mg daily like prescribed she cuts her pills, and takes either 20 mg or 30-35 mg based on what she is doing during the day. Recently, she has been taking 35 mg daily. She presented today with her as she has felt weaker and has had significant pain in the foot. Her who also suffers from Charcot Mara tooth syndrome, feels that he is unable to care for his with her chronic comorbidities, falls, and increased weakness, ultimately seeking inpatient rehab. Admission Exam Per Admitting Provider hysical Exam: General: awake, alert, no apparent distress, morbidly obese Head: Normocephalic, atraumatic ENT: PERRL, EOMI, no pharyngeal exudate, mucous membranes moist Chest: Clear to auscultation, on room air with sats 96%, no adventitious breath sounds Cardiac: Regular rate and rhythm, no murmur, no JVD, normal peripheral pulses, good capillary refill Abdominal: Hypoactive x 4 quadrants, tympanic over RUQ, soft, + mildly distended, nontender to palpation, no rebound or guarding Back: scoliosis Extremities: RLE s/p joint replacement, surrounding erythema, no purulent drainage, R foot with ecchymosis throughout, erythema and warmth extending up anterior tibial region outlined with skin marker and dated, erythema extends past previous marker line. nonpitting edema. Left leg normal inspection, no peripheral edema or erythema, calfs nontender to palpation Psych: Normal mood and affect Neuro: AAO x 3, strength intact bilaterally and rated 4/5, no motor deficits, speech is clear, no peripheral sensory deficits. Principal Diagnosis Mechanical fall with right navicular fracture, status post total right knee replacement, right leg cellulitis, chronic diastolic heart failure, hypertension, sleep apnea Discharge Exam Constitutional well developed, well nourished, + ill appearing and + obese Eyes PERRL, conjunctivae normal, anicteric sclerae ENMT external ear and nose normal, oropharynx normal Neck trachea midline, no thyromegaly Respiratory no respiratory distress and no cough Auscultation: lungs clear to auscultation bilaterally and + diminished lung sounds Cardiovascular Rate/Rhythm: regular rate and regular rhythm; not tachycardic Heart Sounds: normal S1 and normal S2; no murmur Extremities: + edema (Trace edema bilaterally) Gastrointestinal (Abdomen) normal bowel sounds, soft, nontender, no hepatosplenomegaly Musculoskeletal Knee: + surgical incision (Right knee surgical incisions are good. Right ankle pain is improved ) Neurologic PERRL, EOMI, accommodation nl, no face palsy, no dysarthria Lymphatic no cervical or axillary lymphadenopathy Discharge Data Allergies Allergy/AdvReac Type Severity Reaction Status Date / Time adhesive Allergy Intermediate Rash, Verified 02/19/21 17:00 blistering nickel Allergy Mild Irritation Verified 02/19/21 17:00 (earrings) Consultations 02/19/21 16:36 ED Decision to Admit Stat 02/19/21 16:58 Consult Orthopedic Surgery Routine Ordered Studies 02/19/21 16:29 US venous doppler LE RT Stat Hospital Course (1) Status post total right knee replacement: She was admitted with weakness and fall with a status post right total knee replacement on 02/09/2021 Appreciate Ortho input and recommendation Expected new findings and outcome following surgery We will get PT and OT evaluation for placement Pain control ordered - constipation likely due to narcotics, will order bowel regimen PT/OT consulted-needs for likely rehab placement on DC Surrounding erythema likely postsurgical-normalized Remains stable and has been waiting to be transferred to rehab No acute symptoms with the knee joint (2) Navicular fracture of ankle: Status post fall Has right navicular fracture on imaging Consult Ortho, discussed with Dr. Pelaez via phone, no current needs for surgery --likely acute based upon the ecchymosis and edema of the foot currently Possible needs for walking boot based on the patient pain level. Currently pain is well controlled. Fall precautions We will get a special shoe/boot for the right foot Has been getting PT and OT and will need rehab placement Has got the appropriate shoe and getting physical therapy Awaiting rehab placement-likely be discharged to [facility] this afternoon No pain-continue physical therapy (3) Cellulitis: -Has been on cefadroxil 500 mg BID since surgery on 02/09, will hold this for now, concerned that erythema has extended past the previous marker line drawn on 02/15 - new outline drawn by myself and dated today -IV ceftriaxone ordered -Follow blood cultures-pending -No leukocytosis on CBC, afebrile -Will check orthostatics to r/o not becoming septic -Check ultrasound RLE to rule out DVT-none noted, -patient has been taking ASA 81 mg twice daily so unlikely but higher risk due to injury on recent surgery -Cellulitis has improved a lot -We will change to oral antibiotic on discharge -Redness is completely gone-we will discontinue antibiotic (4) Congestive heart failure: -Chronic diastolic heart failure -Last echocardiogram done on 12/23/2020, showing EF of 55 to 59%, no WMA, no valvular disease, no evidence of pulmonary hypertension. - Taking lasix 35 mg daily due to issues with incontinence - denies dysuria,but will check UA and follow urine culture to r/o. Unlikely uti with being on antibiotic since having surgery. At minimum she takes 20 mg of Lasix per day. Patient has been cutting her pills in half, as well as into quarters and dosing herself according to what her daily activities are. No signs and or symptoms of fluid overload (5) Hypertension: -Continue amlodipine 5 mg daily, Lasix as above -BP remains stable -We will give hydralazine as needed as needed for blood pressure control Remains controlled (6) Morbid obesity: -BMI not documented as the patient has not been weighed yet, diet and exercise to be encouraged, heart healthy diet (7) Sleep apnea: -Supposed to use CPAP however is noncompliant (8) Migraine: -History of such, stable, no headache currently (9) Constipation: - Miralax, dulcolax po scheduled. Give 1x dose of milk of mag. - No BM since 02/09 (10) Chronic back pain: -History of such DVT PPx - teds, scds on nonoperative leg, ASA 81 mg twice daily CODE: Full code Dispo-she will be discharged to [facility] at 1:30 this afternoon Should be transferred to [facility] on approval Total Time Total Time Spent Total Time Spent (In Minutes): 35 minutes Discharge Plan Discharge Items Patient Disposition: Transfer Group Home Fac Reason For Visit: s/p R knee surgery, falls, weakness Discharge Diagnosis: Mechanical fall with right navicular fracture, status post total right knee replacement, right leg cellulitis, chronic diastolic heart failure, hypertension, sleep apnea Condition on Discharge: Good Activity: As commented below Activity Comment: Continue PT Non-emergency contact: Primary Care Provider Call non-emergency contact if: you have any medication questions and your symptoms worsen Follow-up/Referrals: Becky Lozada DO [Primary Care Provider] - (Please make an appointment with your primary care provider within 7 days following discharge from the facility) Diet: Heart Healthy Addtl Attending Provider Instructions: Please take precautions to avoid falls Please take less of narcotics pain medication to avoid drowsiness, constipation and confusion Pending Studies at Discharge: No Stand-Alone Forms: My [facility] Skilled Items Patient informed of condition?: Yes DNR: No Discharge Level of Care: Skilled Communicable Disease: No Discharge Prognosis: Stable Lines: None Urinary Catheter: No Medications and DC Order Prescriptions: Continued oxybutynin chloride 10 mg Tablet Extended Release 24hr 20 mg PO QAM RF: 0 amlodipine 5 mg Tablet 5 mg PO QAM RF: 0 ergocalciferol (vitamin D2) [Vitamin D2] 1,250 mcg (50,000 unit) Capsule 1,250 mcg PO WK RF: 0 benazepril 40 mg Tablet 40 mg PO QAM RF: 0 diclofenac sodium 1 % Gel 4 g TOPICAL QID PRN (Reason: Pain) RF: 0 aspirin 81 mg Tablet,Delayed Release (Dr/Ec) 81 mg PO BID 30 Days Qty: 60 RF: 0 polyethylene glycol 3350 [Miralax] 17 gram powder in packet 17 g PO DAILY PRN (Reason: constipation) Qty: 5 RF: 0 acetaminophen [Tylenol Extra Strength] 500 mg tablet 1,000 mg PO Q8 PRN (Reason: Pain) RF: 0 oxycodone 5 mg Tablet 5 mg PO Q4H MDD 4 PRN (Reason: pain) Qty: 14 RF: 0 Changed furosemide [Lasix] 40 mg Tablet 40 mg PO QAM Qty: 0 RF: 0 Discontinued cefadroxil 500 mg capsule 500 mg PO BID Qty: 28 RF: 1 Discharge Orders: Discharge Order (Routine); Ordered 02/25/21 Ordered By: Mojgan Todd Admission Data Admit Date/Time: 02/19/21 16:54 Attending Provider: Mojgan Todd Admit Provider: Светлана Muhammad Primary Care Provider: Becky Lozada Other Providers: Светлана Muhammad ; Mustapha Pelaez ; [facility] Other Interventions: Discharge Summary Assessment (RN) Last Done: 02/25/21 13:04
== END 2021-02-25 13:43 | DRG 563 ==
LOC: ED 15:01 → 2N 16:54 → SUATTDRO 16:54 → 2N 19:20
DX: T40.605A Adverse effect of unspecified narcotics, initial encounter; Z96.651 Presence of right artificial knee joint; M54.9 Dorsalgia, unspecified; R32 Unspecified urinary incontinence; E66.01 Morbid (severe) obesity due to excess calories; Y92.002 Bathroom of unspecified non-institutional (private) residence as the place of occurrence of the external cause; W18.11XA Fall from or off toilet without subsequent striking against object, initial encounter; R73.9 Hyperglycemia, unspecified; S92.251A Displaced fracture of navicular [scaphoid] of right foot, initial encounter for closed fracture; Z91.048 Other nonmedicinal substance allergy status; Z75.1 Person awaiting admission to adequate facility elsewhere; Z91.19 Patient's noncompliance with other medical treatment and regimen; Z68.42 Body mass index [BMI] 45.0-49.9, adult; G89.29 Other chronic pain; I12.9 Hypertensive chronic kidney disease with stage 1 through stage 4 chronic kidney disease, or unspecified chronic kidney disease; L03.115 Cellulitis of right lower limb; R29.6 Repeated falls; Z20.822 Contact with and (suspected) exposure to COVID-19; Z79.899 Other long term (current) drug therapy; G47.33 Obstructive sleep apnea (adult) (pediatric); Z79.82 Long term (current) use of aspirin; Z98.1 Arthrodesis status; N18.9 Chronic kidney disease, unspecified; R53.1 Weakness; I50.32 Chronic diastolic (congestive) heart failure; K59.03 Drug induced constipation